=== PATIENT | female | born 1980 | race Caucasian/White ===

== ENCOUNTER 2021-06-09 07:48 | Outpatient (CLI) | payer OTHER, SELFPAY ==
--- NOTE | ~2021-06-09 | CT_ITS ---
EXAMINATION: CT abdomen pelvis w con INDICATION: Lower abdominal pain TECHNIQUE: Computed tomographic images of the abdomen and pelvis were obtained after the administrati on of 100 cc of Omnipaque 350 intravenous contrast. The dose-length product (DLP) was 1090.61 mGy-cm. Automated exposure control and iterative reconstruction technique were employed. COMPARISON: None available FINDINGS: Minimal dependent atelectasis is present in the lung bases. The heart size is normal. The l iver, spleen, pancreas, gallbladder, and adrenal glands are normal. No pathologically enlarged abdomi nal or pelvic lymph nodes are identified. The appendix is normal. There is no free intraperitoneal ga s or evidence of bowel obstruction. An IUD is present in the uterus. The right alexandre of the uterus pen etrates the myometrium and its tip slightly perforates into the right pelvis. There is a tiny fat-con taining umbilical hernia. Mild lumbar spondylosis is noted. IMPRESSION: 1. Abnormal position of the IUD with the right alexandre penetrating the myometrium with its tip in the ri ght pelvis. These findings were discussed with Dr. Warner at 1040 hours on 06/09/2021. Reviewed, dictated and finalized at location A. IMPRESSION: 1. Abnormal position of the IUD with the right alexandre penetrating the myometrium with its tip in the right pelvis. These findings were discussed with Dr. Alana ryder t 1040 hours on 06/09/2021.
== END 2021-06-09 07:49 | disposition home or self-care (01) ==
PROVIDERS: Visit Provider Nurse Practitioner Obstetrics & Gynecology
DX: R10.2 Pelvic and perineal pain (principal); Z97.5 Presence of (intrauterine) contraceptive device
CPT/HCPCS: 74177; Q9967

== ENCOUNTER 2022-03-31 07:59 | Outpatient (CLI) | payer OTHER, SELFPAY ==
--- NOTE | 2022-04-06 20:10 | WPDHOMESLEEP ---
Sleep Study - Home Unattended Date of Study: 03/31/22 Ordering Provider: Lorraine Brand DO Interpreting Provider: Lorraine Brand DO Home Sleep Study Type: Watch PAT Height: 1.65 m Weight: 95.254 kg Body Mass Index: 34.9 Neck Circumference (inches): 15.75 [place]: 7 Reason for Sleep Study morning headaches, daytime hypersomnia, nighttime GERD Sleep History The patient is a 41-year-old female with migraines that had a sleep study ordered for evaluation of sleep apnea. 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 She denies awakening from sleep short of breath. She occasionally awakens at night with heartburn, belching or cough. She occasionally snores but it is rarely loud enough that others complain. She occasionally has trouble sleeping when she has a cold. She denies waking up gasping for air throughout the night. She denies having breathing problems at night observed by herself or others. She denies sweating excessively at night. She denies having heart palpitations or irregular heartbeats during the night. She occasionally falls asleep during the day but never while driving. She denies cataplexy and hypnagogic / hypnopompic hallucinations. She occasionally feels unable to move when waking up or falling asleep. She denies having trouble at school or work due to sleepiness. She denies feeling afraid of going to sleep. She denies having nightmares but will rarely remember her dreams. She occasionally has thoughts racing through her mind. She rarely feels sad or depressed. She occasionally has anxiety. She denies having muscular tension. She denies noticing parts of her body jerk. She denies kicking during the night. She denies having crawling and aching feelings in her legs as well as leg pain during the night. She denies grinding her teeth during sleep awakening with morning jaw pain. She denies being bothered by pain during the day and being awakened by pain during the night. She denies waking up feeling stiff in the morning. She denies waking up with sore achy muscles. She denies waking up with pain in the neck, spine or other joints. She goes to bed at 11:00 p.m. on both weekdays and weekends. It takes her 10-15 minutes to fall asleep. She wakes up 2-3 times throughout the night to use the restroom and turn on the television. She falls asleep within 5 minutes. She wakes up at 7:30 a.m. on weekdays and 9:00 a.m. on the weekends. She typically gets 4-6 hours of sleep per night. She will stay in bed for 30 minutes after waking up in the morning. She currently lives with her boyfriend and 2 children. She will consume caffeinated beverages within 2 hours of bedtime. She does not engage in physical exercise before bedtime. She will watch television before falling asleep. She does not take naps in the afternoon or the evening. She denies tobacco, alcohol and recreational drug use. [facility] Past Medical History Medical History Headache Surgical History Surgical History H/O section Family History Family History Father Diabetes mellitus Family history of polycystic kidney disease Family history of cancer Family history of stroke Mother Hypertension Grandparent Family history of polycystic kidney disease Family history of cancer Social History Social History Smoking status: Never smoker Second hand tobacco smoke exposure: No Alcohol intake: never Substance use: never Medications Home Medications Medication Instructions Recorded Confirmed Type multivitamin 1 tablet PO DAILY 01/21/22 01/21/22 History ondansetron 4 mg disintegrating 4 mg PO Q6H PRN nausea and 03/04/22 03/04/22 Rx tablet vomiting #60 tabs rizatriptan 10 mg disint
[2022-04-06 20:15] VITALS: BMI 34.9
== END 2022-04-01 10:32 | disposition home or self-care (01) ==
LOC: ANHCSM 08:00
PROVIDERS: PCP Family Medicine; Visit Provider Family Medicine
DX: G47.9 Sleep disorder, unspecified (principal)
CPT/HCPCS: 95800

== ENCOUNTER 2024-04-27 14:52 | Outpatient (CLI) | payer OTHER, SELFPAY ==
--- NOTE | ~2024-04-27 | MM_ITS ---
EXAMINATION: MM screening laith BI w [place] HISTORY: Screening TECHNIQUE: Craniocaudal and mediolateral oblique 3-D tomosynthesis images were obtained and synthetic 2-D images were generated. CAD analysis was submitted and interpreted. COMPARISON: No prior mammogram is available for comparison at this institution. BREAST PARENCHYMAL COMPOSITION: Not dense: There are scattered areas of fibroglandular density. FINDINGS: There is a focal asymmetry in the upper outer quadrant of the right breast anteriorly. Ther e is a mass in the upper central aspect of the left breast, middle third. There are no suspicious david cifications. IMPRESSION: 1. Focal right breast asymmetry upper outer quadrant. Small left breast mass upper central left breas t middle third. 2. Additional mammographic views and possible breast ultrasound are recommended. BI-RADS Category 0: Incomplete: Needs additional imaging evaluation. Reviewed, dictated and finalized at location B. IMPRESSION: 1. Focal right breast asymmetry upper outer quadrant. Small left breast mass up per central left breast middle third. 2. Additional mammographic views and possible breast ultrasound are recommended . BI-RADS Category 0: Incomplete: Needs additional imaging evaluation.
== END 2024-04-27 14:53 ==
LOC: MICIMG 14:53
PROVIDERS: PCP Nurse Practitioner; Visit Provider Nurse Practitioner
DX: Z12.31 Encounter for screening mammogram for malignant neoplasm of breast (principal); R92.8 Other abnormal and inconclusive findings on diagnostic imaging of breast
CPT/HCPCS: 77063; 77067

== ENCOUNTER 2024-05-25 09:18 | Outpatient (CLI) | payer OTHER, SELFPAY ==
--- NOTE | ~2024-05-25 | MMUS_ITS ---
EXAMINATION: MM diagnostic laith BI w [place], US breast BI limited HISTORY: Follow-up breast asymmetries TECHNIQUE: Additional 3-D tomosynthesis images of the breasts were performed and synthetic 2-D images were generated. CAD analysis was submitted and interpreted. High resolution limited bilateral breast ultrasound was performed. COMPARISON: 04/27/2024 BREAST PARENCHYMAL COMPOSITION: Not dense: There are scattered areas of fibroglandular density. FINDINGS: MAMMOGRAPHIC FINDINGS: Focal asymmetry anterior and lateral aspect of the right breast on CC view is less dense with spot co mpression views with no discrete mass identified on tomographic images. No corresponding abnormality is seen on MLO or mediolateral views. There is a mass in the upper central aspect of the left breast, middle depth. ULTRASOUND: Limited right breast ultrasound: Normal heterogeneous echotexture without focal solid or cystic mass. Limited left breast ultrasound: At 12:00, 5 cm from the nipple there is an oval slightly irregular sh aped hypoechoic mass measuring 9 x 9 x 5 mm without internal vascularity. No significant posterior fe atures. IMPRESSION: 1. Oval hypoechoic 9 mm left breast mass at 12:00, 5 cm from the nipple corresponding to the mammogra phic finding. 2. Ultrasound-guided left breast biopsy recommended. BI-RADS category 4, suspicious findings. Reviewed, dictated and finalized at location B. IMPRESSION: 1. Oval hypoechoic 9 mm left breast mass at 12:00, 5 cm from the nipple corresp onding to the mammographic finding. 2. Ultrasound-guided left breast biopsy recommended. BI-RADS category 4, suspicious findings.
== END 2024-05-25 09:19 ==
LOC: MICIMG 09:19
PROVIDERS: PCP Nurse Practitioner; Visit Provider Nurse Practitioner
DX: N63.20 Unspecified lump in the left breast, unspecified quadrant (principal); R92.8 Other abnormal and inconclusive findings on diagnostic imaging of breast
CPT/HCPCS: 76642; 77062; 77066; G0279

== ENCOUNTER 2024-07-18 13:26 | Outpatient (CLI) | payer OTHER, SELFPAY ==
--- NOTE | 2024-07-18 13:32 | ECHO_ITS ---
Patient Info Name: Juli Sanchez Age: 43 years : 1980 Gender: Female Ht: 65 in Wt: 215 lbs BSA: 2.16 m2 HR: 89 bpm BP: 145 / 80 mmHg Technical Quality: Fair Exam Date: 07/18/2024 1:43 PM Exam Location: Echo Lab Patient Status: Outpatient Admit Date: 07/18/2024 Staff Ordering Physician: Lorraine Brand DO [employer] Spr[employer] Unit Adjuster: Shayla Harvey RDCS Attending Provider: Lorraine Brand DO Referring Physician: Sunday JAIMES; Exam Type: CA echo doppler color flow Study Info Indications R01.1 - Cardiac murmur, unspecified Complete two-dimensional, color flow and Doppler transthoracic echocardiogram is performed. Summary 1. Complete two-dimensional, color flow and Doppler transthoracic echocardiogram is performed. 2. Left ventricular chamber dimension is normal. 3. Left ventricular systolic function is normal, estimated at 65-70%. 4. The left ventricular diastolic function is normal. 5. E/e' 8 is minimally elevated. 6. There is trace tricuspid valve regurgitation. 7. No pulmonary hypertension, estimated pulmonary arterial systolic pressure is 30 mmHg. Left Ventricle E/e' 8 is minimally elevated. Left ventricular chamber dimension is normal. Left ventricular systolic function is normal, estimated at 65-70%. The left ventricular diastolic function is normal. Right Ventricle Right ventricular systolic function is normal and with normal TAPSE 2.3 cm. Right ventricular chamber dimension is normal. Left Atria Left atrial chamber dimension is normal. Right Atria Right atrial chamber dimension is normal. Aortic Valve The aortic valve is trileaflet. There is no aortic valve stenosis. There is no aortic valve regurgitation. Pulmonic Valve There is no pulmonic regurgitation. Mitral Valve There is no mitral valve stenosis. There is no mitral valve regurgitation. Tricuspid Valve There is trace tricuspid valve regurgitation. No pulmonary hypertension, estimated pulmonary arterial systolic pressure is 30 mmHg. Pericardium/Pleural There is no pericardial effusion. Inferior Vena Cava Normal inferior vena cava with >50% collapse upon inspiration consistent with normal right atrial pressure, 5 mmHg. Aorta The aortic root size at the sinus of Valsalva is normal. Left Ventricular Outflow Tract Name Value Normal LVOT 2D LVOT Diameter 2.0 cm LVOT Doppler LVOT Peak Gradient 5 mmHg LVOT Mean Gradient 3 mmHg LVOT VTI 23 cm LVOT VTI/AV VTI Ratio 0.8 LVOT Stroke Volume 71 ml LVOT CO 6.1 l/min LVOT CI 2.8 l/min/m2 Pulmonic Valve Name Value Normal RVOT Doppler RVOT Peak Gradient 2 mmHg PV Doppler PV Peak Gradient
== END 2024-07-18 13:27 | disposition home or self-care (01) ==
LOC: ANHCARD 13:27
PROVIDERS: PCP Family Medicine; Visit Provider Family Medicine
DX: R01.1 Cardiac murmur, unspecified (principal)
CPT/HCPCS: 93306

== ENCOUNTER 2024-07-19 08:35 | Outpatient (CLI) | payer OTHER, SELFPAY ==
--- NOTE | ~2024-07-19 | US_ITS ---
US breast LT limited 07/19/2024 09:42 Indication: Left breast mass seen on prior examination. Biopsy requested. Procedure: High-resolution Limited ultrasound of the left breast Comparison: 05/25/2024 Findings: Dr. Rg personally present during the examination. Video sweep of the area of interest dem onstrates an oval hypoechoic mass measuring 7 mm with echogenic hilum, most likely benign intramammar y lymph node. Biopsy not performed. Repeat six-month interval ultrasound recommended to assess stabil ity. Impression: 1: Probable benign intramammary lymph node of the left breast at 12:00, 5 cm from the nipple. BI-RADS CATEGORY 3-PROBABLY BENIGN FINDING RECOMMENDATION: 6 month follow-up Limited left breast ultrasound recommended. Reviewed, dictated and finalized at location B. Impression: 1: Probable benign intramammary lymph node of the left breast at 12:00, 5 cm fr om the nipple. BI-RADS CATEGORY 3-PROBABLY BENIGN FINDING RECOMMENDATION: 6 month follow-up Limited left breast ultrasound recommended.
== END 2024-07-19 08:36 | disposition home or self-care (01) ==
PROVIDERS: PCP Family Medicine; Visit Provider Surgery
DX: N63.25 Unspecified lump in the left breast, overlapping quadrants (principal)
CPT/HCPCS: 76642

== ENCOUNTER 2025-03-07 01:15 | Day surgery (SDC) | payer OTHER, SELFPAY ==
--- NOTE | 2025-02-27 15:02 | SUR.PREOP ---
Report to the Outpatient Waiting Room, entrance under the green pavilion located off [facility], at time ___0800____ on date ___03/07/25____. Planned Procedure Time: ____999____.? Time changes happen often and if your time is changed the preop area will call you the afternoon before. - You and your visitor will be asked to self-screen and do not enter if you have any COVID symptoms. Please call surgeon if you need to reschedule. - A mask is optional within the hospital at this time. Patients may have clear liquids (water, carbonated beverages, clear teas, apple juice) until 3 hours prior to surgery with a maximum of 20 ounces. - NO CLEAR LIQUIDS AFTER 0700 - No food from midnight until time of surgery and no smoking, or chewing tobacco (or any form of nicotine). No chewing gum, candy or mints. - Infants may have breast milk until 4 hours before surgery, infant formula 6 hours prior to surgery. - Children will be allowed to drink immediately following surgery.? If applicable, please bring a bottle or sippy cup to assist with drinking. Juice, water, soda, and popsicles are readily available.? For infants on formula, please bring formula the day of surgery.? Pacifiers are allowed. Take only the following medications with a SIP of water on the morning of surgery: N/A DO NOT STOP ANY OF YOUR OTHER PRESCRIPTION MEDICATIONS PRIOR TO SURGERY EXCEPT THE FOLLOWING Hold all vitamins and supplements for 3 days per anesthesiologist. Medications to discontinue per physician N/A Date to take last dose Please no make-up, nail zambian, hairspray, perfume, deodorant, or body powder the day of surgery.? No jewelry (including any body piercings) or valuables the day of surgery, leave them at home.? Please take a shower or bath the night before, or the morning of, surgery with an antibacterial soap.? Wear comfortable, loose fitting clothing.? Children are encouraged to wear pajamas. - Jewelry must be removed prior to entering the operating room.? Rings and piercings that are not removed may be cut off. - The hospital will not accept responsibility for valuables.? - Please leave all valuables, including medications, at home the day of surgery. If you are going home after surgery, a licensed stock car driver must drive you home.? - NO public transportation without another adult if you receive anesthesia. - We recommend that an adult stay with you for 24 hours following discharge. - We also recommend that you do not drive, make important decision, drink alcoholic beverages, or take any drugs that were not prescribed by your health care provider for at least 24 hours after your discharge time. For Pediatric surgeries, we recommend two adults accompany the child home. Follow any additional instructions given to you from your surgeon. Telephone instructions given to CRYSTAL KERN and asked if any additional questions and then verbalized understanding. Patient advised to call surgeon office or pre surgery nurse liaison [phone] if any additional questions.
[2025-02-27 15:20] VITALS: BMI 33.3
--- OUTSIDE RECORDS SUMMARY | 2025-03-07 01:18 | XMS_ITS | Clinical Summary ---
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 Gender Identity Not on file Sexual Orientation Not on file Plan of Treatment Health Maintenance Due Date Last Done Comments DTAP/TDAP/TD VACCINES (1 - Tdap) 1999 HEPATITIS B VACCINES (1 of 3 - 19+ 3-dose series) 1999 HPV/Cotest (21-29) 2001 CERVICAL CANCER SCREENING 2010 HPV/Cotest (30-65) 2010 PAP SMEAR 2010 BREAST CANCER SCREENING 2020 INFLUENZA VACCINE (#1) 2024 HPV VACCINES Aged Out No longer eligi ble based on patient's age to complete this topic Insurance BCBS BLUE ACCESS/TRUE BLUE PPO Care Teams Special Forces Engineer Sergeant Relationship Specialty [place] [address] [place] [id number] PCP - General 08/29/09
--- OUTSIDE RECORDS SUMMARY | 2025-03-07 01:18 | XMS_ITS | Referral Summary ---
Author Organization [facility] [address] Address [facility] [place] [address] Care Team Providers Care Supervisor Bonding Name Role Phone Lorraine Brand DO Primary Care Provider + Allergies Active Allergy Reactions Criticality Noted Date Comments Dkpuugthb-Sohwpjsrl-Wrfqfjsz Swelling Medium 010 Medications progesterone (PROMETRIUM) 200 mg capsule TAKE 1 CAPSULE BY MOUTH EVERY DAY FOR 12 DAYS 01/14/2024 Active cholecalciferol (VITAMIN D-3) 50,000 unit capsule Take 1 capsule (50,000 Units total) by mouth 12/21/2023 Active benzonatate (TESSALON) 100 mg capsuleIndicati ons:Cough Take 1 capsule (100 mg total) by mouth 3 (three) times a day as needed for cough 21 capsule 01/31/2024 Active Active Problems No known active problems Social History Tobacco Use Types Packs/Day Years Used Date Smoking Tobacco: Never Smokeless Tobacco: Never Tobacco Cessation:Counseling Given: Not Answered AUDIT-C Answer Date Recorded Frequency of Alcohol Consumption Not on file 04/11/2022 Q2: How many drinks containi ng alcohol do you have on a typical day when you are drinking? 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 Gender Identity Not on file Sexual Orientation Not on file Last Filed Vital Signs Vital Sign Reading Time Taken Comments Blood Pressure 118/78 01/31/2024 6:33 PM CDT Pulse 105 01/31/2024 6:33 PM CDT Temperature 36.4 C (97.5 F) 01/31/2024 6:33 PM CDT Respiratory Rate 18 01/31/2024 6:33 PM CDT Oxygen Saturation 97% 01/31/2024 6:33 PM CDT Inhaled Oxygen Concentration - - Weight 107.5 kg (237 lb) 01/31/2024 6:33 PM CDT Height 165.1 cm (5' 5) 01/31/2024 6:33 PM CDT Body Mass Index 39.44 01/31/2024 6:33 PM CDT Plan of Treatment Not on file Procedures Procedure Name Priority Date/Time Associated Diagnosis Comments SCREENING MAMMOGRAM 2D BILATERAL Schedule Routine, Read Routine (OP Routine) 05/25/2024 1:56 PM CDT from Last 3 Months or Most Recently Relevant to Health Maintenance Results * Screening Mammogram 2D Bilateral (05/25/2024 1:56 PM CDT) Anatomical Region Laterality Modality Breast Bilateral Mammography us Historical Provider MD [facility] MAMMO PROCEDURES Nova l Result from Last 3 Months or Most Recently Relevant to Health Maintenance Insurance [employer] Care Teams Supervisor Bonding Relationship Specialty Start Date End Date Lorraine Brand DO [address] [place] [address] [place] [address] PCP - General Family Medicine 01/31/24
--- OUTSIDE RECORDS SUMMARY | 2025-03-07 01:19 | XMS_ITS | Clinical Summary ---
Author Organization [facility] Address [address] [place] [address] Care Team Providers Care Senior Sales Administrator Name Role Phone BrandShayneth Nicol ROCHE Primary Care Provider [phone] Source Comments [facility],non-owned Affiliates and Associated Physician Practices is amultiple site organization consisting of ambulatory clinics and hospital sitesin [place], [place], [place] and [place]. This disclosure is being madepursuant to the Care Everywhere program and may not contain all information available regarding this patient. Last updated 18.[facility] Allergies Active Allergy Reactions Criticality Noted Date Comments Extendryl Swelling 03/08/2010 Medications * Be aware that medications may not be up to date on this document. Always verify current medications with the patient. Cholecalciferol 1.25 MG (99504 UT) Take 1 capsule by mouth once a week 12/21/2023 Active cabergoline (Dostinex) 0.5 MG tablet TAKE 1/2 TABLET BY MOUTH TWICE WEEKLY 24 tablet 1 06/06/2024 Active Active Problems Problem Noted Date Diagnosed Date Tachycardia 03/10/2010 Immunizations Immunization Administration Dates Next Due TDAP (7yrs+) 03/12/2010 Family History Medical History Relation Name Comments Other Father DVT Cancer Maternal Grandfather Cancer Maternal Grandmother Diabetes Maternal Grandmother Cancer Paternal Grandfather Cancer Paternal Grandmother Relation Name Status Comments Father Maternal Grandfather Maternal Grandmother Paternal Grandfather Paternal Grandmother Social History Tobacco Use Types Packs/Day Years Used Date Smoking Tobacco: Never Smokeless Tobacco: Never Tobacco Cessation:Counseling Given: Yes Alcohol Use Standard Drinks/Week Comments No 0 (1 standard drink = 0.6 oz pur e alcohol) Comments No Sex and Gender Information Value Date Recorded Sex Assigned at Not on file Legal Sex Female 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 Gender Identity Not on file Sexual Orientation Not on file Last Filed Vital Signs Vital Sign Reading Time Taken Comments Blood Pressure 157/87 02/08/2024 9:28 AM CDT Pulse 93 02/08/2024 9:28 AM CDT Temperature 37.1 C (98.7 F) 12/07/2019 3:04 PM CDT Respiratory Rate 16 12/07/2019 3:04 PM CDT Oxygen Saturation 96% 02/08/2024 9:28 AM CDT Inhaled Oxygen Concentration - - Weight 88.5 kg (195 lb) 12/07/2019 3:04 PM CDT Height 165.1 cm (5' 5) 12/07/2019 3:04 PM CDT Body Mass Index 32.45 12/07/2019 3:04 PM CDT Plan of Treatment Health Maintenance Due Date Last Done Comments MAMMOGRAM 1980 HIV SCREENING 1995 HEPATITIS C SCREENING 09/29/1998 HEPATITIS B VACCINE (1 of 3 - 19+ 3-dose series) 1999 DTAP/TDAP/TD VACCINES (2 - T d or Tdap) 03/12/2020 03/12/2010 COVID-19 VACCINE (2023-2 5 season) 2024 DEPRESSION SCREENING 09/27/2024 PAP SMEAR 12/14/2026 12/15/2023, 12/15/2023 LIPID TESTING 12/14/2028 12/15/2023 ZOSTER VACCINE (1 of 2) 2030 INFLUENZA VACCINE Completed 07/16/2024 HIB VACCINE Aged Out No longer eligi ble based on patient's age to complete this topic HPV VACCINE Aged Out No longer eligi ble based on patient's age to complete this topic MENINGOCOCCAL (Group B) VACCINE SHARED DECISION-MAKING Aged Out No longer eligible based on patient's age to complete this topic MENINGOCOCCAL GROUPS A/C/Y/W VACCINE Aged Out No longer eligible b ased on patient's age to complete this topic PNEUMOCOCCAL VACCINE Aged Out No long er eligible based on patient's age to complete this topic Insurance * Guarantor: Juli Sanchez Account Type Relation to Patient Date of Phone Billing Address Personal/Family Self [address] [place] [place] [address] [facility] Advance Directives * Full Code (Latest Code Status on File) Date Activated Date Inactivated Comments 03/08/2010 8:58 PM 03/14/2010 3:16 AM Care Teams Senior Sales Administrator Relationship Specialty Start Date End Date Lorraine Brand DO [address] [place] [address] PCP - General Family Medicine 12/22/23
--- OUTSIDE RECORDS SUMMARY | 2025-03-07 01:19 | XMS_ITS | Data Portability ---
Author Organization [facility] [place] Address [address] [place] [place] [place] [address] Care Team Providers Care Recovery Agent Name Role Phone DEAN CHARISSE Primary Care Provider Assessment Encounter Date Assessment Date Assessment LastModified by Organization Details LastModified Time 12/20/2024 12/20/2024 Annual gynecological exam performed. Patient will come back in a year unless there are new symptoms. Not available 12/20/2024 09:51:15 Plan of Treatment Reminders Order Date Submit Date Provider Last Modified By Organization Details Last Modified Time Details Appointments SURG Hysterosc opy 2024 10:30A Kenan WARNER MD Not available Not available Not available SURG POST OP 2024 03:30P Kenan WARNER MD Not available Not available Not available Lab test, urine 2024 025 gregorioprincetonlizandro [place], [address], [address], [place], [address], 01/09/2025 13:44:38 test, urine 2023 024 christina [place], [address], [place], [address], 01/12/2024 12:41:37 Referral None recorded. Procedures None recorded. Surgeries dilation and curettage with hysterosc opy (SURG) 2024 025 [facility], [address], [place], [address], 02/01/2025 11:36:38 Imaging US, pelvis [address], [address], [place], [address], 12/27/2024 22:04:56 US, transvagi nal [address], [address], [place], [address], 12/27/2024 22:04:56 MAMMO, screening , digital, bilateral [address] [facility], [address], [place], [address], 01/21/2025 11:15:30 US, pelvis, complete [address]24 [address], [address], [place], [address], 12/27/2024 09:20:57 Medication Orders None recorded. Patient TargetsNo targets recorded. Patient InstructionsNo instructions recorded. Reason for Referral None Reported. Results Created Date Observation Date Name Description Value Unit Range Abnormal Flag Note LastModifiedBy Organization Detail LastModifiedTime 12/15/19 24 12/15/2023 IMAGE GUIDE D PAP AND HPV REGAR DLESS image guided Pap, HPV regardless of Pap result SEE RESULT S BELOW CASE REPOR T: Cytol ogy Gynec ologi maria de jesus Repor t Case: [id number] Autho nya g Provi yobany: Caro iGl NP Colle cted: 12/14 0943 Order ing Locat ion: [place] Patho logy Recei nat: 12/15 0145 First Scree n: Ma, Eliot, CT Rescr een: Kezia de, Brii lao, CT Speci men: Scree viraj Pap - Image d, Cervi x STATE MENT OF ADEQU ACY: Satis facto ry for evalu ation Trans forma tion zone compo nent absen t The absen ce of an endoc ervic al compo nent was confi rmed by an addit aldo cyr. FINAL DIAGN OSIS: Negat danica for Intra epith elial Lesio n or Jose G carrasquillo (NIL) . Elect ann cabrera vickey d by Brii Salgado ret, CT on 2023 at 7:57 AM ----- ----- ----- ----- ----- ----- ----- ----- ----- ----- ----- ----- ----- ----- ----- ----- ----- ---- HPV RESUL TS: HPV mRNA E6/E7 : No HPV mRNA Detec kwesi NOTE: This high risk HPV mRNA assay detec ts fourt een high- risk HPV types (16, 18, 31, 33, 35, 39, 45, 51, 52, 56, 58, 59, 66, 68) witho ut diffe renti ation . COMME NT: This speci men was revie wed by a Cytot echno logis t and/o r Patho logis t (as indic ated in this repor t) after evalu ation using the Thinp rep Imagi ng Syste m. CLINI MARIA DE JESUS INFOR MATIO N: Menst rual Statu s: LMP (if appli cable ): Clini maria de jesus Histo ry/Pr eviou s Pap: Type of Neopl geetha (if appli cable ): Signi fican t Clini maria de jesus Findi ngs: Other Histo ry: Hormo radha (if appli cable ): PAP EDUCA SOL L NOTE: The Pap Test is a scree viraj test with an inher ent false negat danica rate. Liqui d-bas ed sampl ing may decre ase, but will not elimi kris, false negat danica resul ts. A negat danica resul t does not precl ude the prese nce and/o r devel opmen t of disea se, since the prese nce of abnor mal cells in the sampl e depen ds on the locat ion of the lesio n and sampl ing techn ique. Cass nued regul ar scree viraj is the best metho d of cance r preve ntion . If repor kwesi cytol ogic findi ng do not corre late with physi maria de jesus and/o r histo rical findi ngs, furth er inves tigat ion is recom srinivasan d, as clini phuong kirby nted. Not Available [facility] (Lab) [address], [place], [address], 12/20/2023 08:59:53 12/15/19 24 12/15/2023 CBC W/DIF F WBC 6.0 10'3/ uL 3.5-10 .5 Not Available [facility] (Lab) [address], [place], [address], 12/20/2023 23:23:43 12/15/19 24 12/15/2023 CBC W/DIF F RBC 5.01 10'6/ uL (based on docume nted legal sex) 3.80-5 .20 Not Available [facility] (Lab) [address], [place], [address], 12/20/2023 23:23:43 12/15/19 24 12/15/2023 CBC W/DIF F HGB 13.1 g/dL (based on docume nted legal sex) 11.6-1 5.4 Not Available [facility] (Lab) [address], [place], [address], 12/20/2023 23:23:43 12/15/19 24 12/15/2023 CBC W/DIF F HCT 40.7 % (based on docume nted legal sex) 34.0-4 5.0 Not Available [facility] (Lab) [address], [place], [address], 12/20/2023 23:23:43 12/15/19 24 12/15/2023 CBC W/DIF F MCV 81.2 fL 80.0-9 9.0 Not Available [facility] (Lab) [address] [facility] [address], [place], [address], 12/20/2023 23:23:43 12/15/19 24 12/15/2023 CBC W/DIF F MCH 26.1 pg 27.0-3 4.0 low Not Available [facility] (Lab) [address] [facility], [place], [address], 12/20/2023 23:23:43 12/15/19 24 12/15/2023 CBC W/DIF F MCHC 32.2 g/dL 32.0-3 5.5 Not Available [facility] (Lab) [address], [place], [address], 12/20/2023 23:23:43 12/15/19 24 12/15/2023 CBC W/DIF F RDW 14.8 % 11.0-1 5.0 Not Available [facility] (Lab) [address], [place], [address], 12/20/2023 23:23:43 12/15/19 24 12/15/2023 CBC W/DIF F plt 258 10'3/ uL 150-40 0 Not Available [facility] (Lab) [address], [place], [address], 12/20/2023 23:23:43 12/15/19 24 12/15/2023 CBC W/DIF F MPV 11.2 fL 8.8-12 .1 Not Available [facility] (Lab) [address], [place], [address], 12/20/2023 23:23:43 12/15/19 24 12/15/2023 CBC W/DIF F NRBC's 0.0 % 0.0 Not Available [facility] (Lab) [address], [place], [address], 12/20/2023 23:23:43 12/15/19 24 12/15/2023 CBC W/DIF F absolute NRBCs 0.0 10'3/ uL 0.0 Not Available [facility] (Lab) [address], [place], [address], 12/20/2023 23:23:43 12/15/19 24 12/15/2023 CBC W/DIF F neutrophils 60.3 % 34.0-7 3.0 Not Available [facility] (Lab) [address], [place], [address], 12/20/2023 23:23:43 12/15/19 24 12/15/2023 CBC W/DIF F lymphocytes 30.5 % 15.0-5 0.0 Not Available [facility] (Lab) [address], [place], [address], 12/20/2023 23:23:43 12/15/19 24 12/15/2023 CBC W/DIF F monocytes 5.6 % 1.0-15 .0 Not Available [facility] (Lab) [address], [place], [address], 12/20/2023 23:23:43 12/15/19 24 12/15/2023 CBC W/DIF F eosinophils 2.8 % 0.0-8. 0 Not Available [facility] (Lab) [address], [place], [address], 12/20/2023 23:23:43 12/15/19 24 12/15/2023 CBC W/DIF F basophils 0.3 % 0.0-2. 0 Not Available [facility] (Lab) [address] [place], [address], 12/20/2023 23:23:43 12/15/19 24 12/15/2023 CBC W/DIF F immature granulocytes 0.5 % no define d refere nce range Not Available [facility] (Lab) [address] [place], [address], 12/20/2023 23:23:43 12/15/19 24 12/15/2023 CBC W/DIF F absolute neutrophils 3.6 10'3/ uL 1.5-8. 0 Not Available [facility] (Lab) [address], [place], [address], 12/20/2023 23:23:43 12/15/19 24 12/15/2023 CBC W/DIF F absolute lymphocytes 1.8 10'3/ uL 1.0-4. 0 Not Available [facility] (Lab) [address], [place], [address], 12/20/2023 23:23:43 12/15/19 24 12/15/2023 CBC W/DIF F absolute monocytes 0.3 10'3/ uL 0.2-1. 0 Not Available [facility] (Lab) [address], [place], [address], 12/20/2023 23:23:43 12/15/19 24 12/15/2023 CBC W/DIF F absolute eosinophils 0.2 10'3/ uL 0.0-0. 6 Not Available [facility] (Lab) [address], [place], [address], 12/20/2023 23:23:43 12/15/19 24 12/15/2023 CBC W/DIF F absolute basophils 0.0 10'3/ uL 0.0-0. 3 Not Available [facility] (Lab) [address], [place], [address], 12/20/2023 23:23:43 12/15/19 24 12/15/2023 CBC W/DIF F absolute immature granulocytes 0.0 10'3/ uL 0.00-0 .10 2023 1:58 AM: P indic ates parti al resul ts on a panel have been relea sed. Addit ional resul ts will follo w. 2023 1:58 AM: This resul t has been final verif ied. No addit ional or hooker ed resul ts are expec kwesi. Not Available [facility] (Lab) [address], [place], [address], 12/20/2023 23:23:43 12/15/19 24 12/15/2023 LIPID PANEL ,AMA (LDL- CALC) total cholesterol 193 mg/dL 0-199 Not Available [facility] (Lab) [address], [place], [address], 12/20/2023 23:23:43 12/15/19 24 12/15/2023 LIPID PANEL ,AMA (LDL- CALC) triglyceride s 112 mg/dL 0.00-1 50.00 NCEP Refer ence Value s for Trigl yceri alvarez: Dayna l: <150 mg/dL Borde rline High: 150 - 199 mg/dL High: 200 - 499 mg/dL Very High: >/= 500 mg/dL Not Available [facility] (Lab) [address] [place], [address], 12/20/2023 23:23:43 12/15/19 24 12/15/2023 LIPID PANEL ,AMA (LDL- CALC) HDL cholesterol 43 mg/dL >40 Not Available [facility] (Lab) [address] [place], [address], 12/20/2023 23:23:43 12/15/19 24 12/15/2023 LIPID PANEL ,AMA (LDL- CALC) LDL cholesterol 128 mg/dL 0-99 high Cutof f value s recom srinivasan d by the Gonzales nal Sally stero l Educa tion Progr am: JASPAL ABLE: Sally stero l <200 mg/dL LDL <100 mg/dL BORDE RLINE : Sally stero l 200-2 39 mg/dL LDL 101-1 59 mg/dL HIGHE R RISK: Sally stero l >240 mg/dL LDL >160 mg/dL , HDL <40 mg/dL Not Available [facility] (Lab) [address] [place], [address], 12/20/2023 23:23:43 12/15/19 24 12/15/2023 LIPID PANEL ,AMA (LDL- CALC) non-HDL cholesterol 150 mg/dL no refere nce range A reaso nable goal for non-H DL sally stero l is one that is 30 mg/dL highe r than the LDL sally stero l goal. Not Available [facility] (Lab) [address], [place], [address], 12/20/2023 23:23:43 12/15/19 24 12/15/2023 LIPID PANEL ,AMA (LDL- CALC) chol/HDL ratio 4.5 . 0.0-5. 0 On January 19, 2023, [facility] labor atori jacobo hooker ed the equat ion for calcu latin g estim ated low-d ensit y lipop rotei n-cho leste rol (LDL- C) from the Fried tawanda equat ion to the Tammie n/Hop kins equat ion. This new equat ion is only valid for lipid panel s with trigl yceri alvarez < 400 mg/dL . Studi es have demon strat ed that this new equat ion will impro ve the accur acy of LDL-C , espec ially in scena burris when LDL-C grabiel ntrat ions are relat ively low (< 100 mg/dL ), trigl yceri alvarez are eleva kwesi, or patie nt is non-f astin g. Refer ences : - Tammie walsh, Kojo Ramirez, Fan Penaloza , [facility] david BMary Ellen fountain, Jt Schrader, Hamzah [facility] , and Natalio Bates . 2013. Comp ariso n of a Novel Metho d vs the Fried tawanda Equat ion for Estim ating Low-D ensit y Lipop rotei n Sally stero l Level s from the Stand jm Lipid Profi le. VIJAYA: The Journ al of the Ameri can Medic al Assoc iatio n 310 (19): 2060- . - Glendy clemons V, Justine J, Humble clemons A, Maritza Grayson, Karen manriquez R, Pippa clemons E, Kyara farooq RS, Paulo SR, Tammie walsh SS. Fast ing Versu s Nonfa sting and Low-D ensit y Lipop rotei n Sally stero l Accur acy. Circu latio n. 2017Sep 28;137 (1):1 0-19. Not Available [facility] (Lab) [address], [place], [address], 12/20/2023 23:23:43 12/15/19 24 12/15/2023 CMP(C OMPRE HENSI VE METAB OLIC PANEL ) sodium 142 mmol/ L 133-14 6 Not Available [facility] (Lab) [address], [place], [address], 12/20/2023 23:23:44 12/15/19 24 12/15/2023 CMP(C OMPRE HENSI VE METAB OLIC PANEL ) potassium 4.5 mmol/ L 3.5-5. 1 Not Available [facility] (Lab) [address], [place], [address], 12/20/2023 23:23:44 12/15/19 24 12/15/2023 CMP(C OMPRE HENSI VE METAB OLIC PANEL ) chloride 106 mmol/ L 98-107 Not Available [facility] (Lab) [address], [place], [address], 12/20/2023 23:23:44 12/15/19 24 12/15/2023 CMP(C OMPRE HENSI VE METAB OLIC PANEL ) carbon dioxide 28 mmol/ L 21-31 Not Available [facility] (Lab) [address], [place], [address], 12/20/2023 23:23:44 12/15/19 24 12/15/2023 CMP(C OMPRE HENSI VE METAB OLIC PANEL ) anion gap 8 mmol/ L 4-13 Not Available [facility] (Lab) [address] [place], [address], 12/20/2023 23:23:44 12/15/19 24 12/15/2023 CMP(C OMPRE HENSI VE METAB OLIC PANEL ) blood urea nitrogen 15 mg/dL 7-25 Not Available [facility] (Lab) [address], [place], [address], 12/20/2023 23:23:44 12/15/19 24 12/15/2023 CMP(C OMPRE HENSI VE METAB OLIC PANEL ) creatinine 0.82 mg/dL 0.60-1 .30 Not Available [facility] (Lab) [address], [place], [address], 12/20/2023 23:23:44 12/15/19 24 12/15/2023 CMP(C OMPRE HENSI VE METAB OLIC PANEL ) egfrcr (CKD-epi 2020) >90 mL/mi n/1.7 3_m2 >=60 Not Available [facility] (Lab) [address], [place], [address], 12/20/2023 23:23:44 12/15/19 24 12/15/2023 CMP(C OMPRE HENSI VE METAB OLIC PANEL ) calcium 9.6 mg/dL 8.3-10 .5 Not Available [facility] (Lab) [address], [place], [address], 12/20/2023 23:23:44 12/15/19 24 12/15/2023 CMP(C OMPRE HENSI VE METAB OLIC PANEL ) glucose 100 mg/dL 70-100 Not Available [facility] (Lab) [address], [place], [address], 12/20/2023 23:23:44 12/15/19 24 12/15/2023 CMP(C OMPRE HENSI VE METAB OLIC PANEL ) protein, total 7.2 g/dL 6.4-8. 3 Not Available [facility] (Lab) [address], [place], [address], 12/20/2023 23:23:44 12/15/19 24 12/15/2023 CMP(C OMPRE HENSI VE METAB OLIC PANEL ) albumin 4.3 g/dL 3.5-5. 0 Not Available [facility] (Lab) [address], [place], [address], 12/20/2023 23:23:44 12/15/19 24 12/15/2023 CMP(C OMPRE HENSI VE METAB OLIC PANEL ) ALT 28 units /L 9-43 Not Available [facility] (Lab) [address], [place], [address], 12/20/2023 23:23:44 12/15/19 24 12/15/2023 CMP(C OMPRE HENSI VE METAB OLIC PANEL ) alkaline phosphatase 71 units /L 34-104 Not Available [facility] (Lab) [address], [place], [address], 12/20/2023 23:23:44 12/15/19 24 12/15/2023 CMP(C OMPRE HENSI VE METAB OLIC PANEL ) AST 20 units /L 13-39 Not Available [facility] (Lab) [address], [place], [address], 12/20/2023 23:23:44 12/15/19 24 12/15/2023 CMP(C OMPRE HENSI VE METAB OLIC PANEL ) bilirubin, total 0.9 mg/dL 0.2-1. 2 Not Available [facility] (Lab) [address] [place], [address], 12/20/2023 23:23:44 12/15/19 24 12/15/2023 DHEA SULFA TE DHEA-sulfate 34 ug/dL Femal e Range s Age(y ) Range (ug/d L) 10-15 34-28 0 15-20 65-36 8 20-25 148-4 07 25-35 99-34 0 35-45 61-33 7 45-55 35-25 6 55-65 19-20 5 65-75 9-246 > 75 12-15 4 Not Available [facility] (Lab) [address], [place], [address], 12/20/2023 23:23:44 12/15/19 24 12/15/2023 TSH, REFLE X FREE T4 TSH 1.19 uIU/m L 0.30-5 .33 Not Available [facility] (Lab) [address], [place], [address], 12/20/2023 23:23:45 12/15/19 24 12/15/2023 HUMAN SEX HORMO NE JESUS NG GLOBU DORA sex hormone binding globulin 14.5 nmole s/L 18.2-1 35.5 low Not Available [facility] (Lab) [address], [place], [address], 12/20/2023 23:23:45 12/15/19 24 12/15/2023 VITAM IN D, 25-OH (TOTA L D2/D3 ) vitamin D, 25-hydroxy, total 15.4 NG/mL 30.0-1 00.0 low Sugge stive of Defic iency : <20 ng/mL Sugge stive of Insuf ficie ncy: 20-29 ng/mL Sugge stive of Suffi cienc y: 30-10 0 ng/mL Sugge stive of Toxic ity: >150 ng/mL Not Available [facility] (Lab) [address], [place], [address], 12/20/2023 23:23:45 12/15/19 24 12/15/2023 ESTRA DIOL estradiol 8.1 pg/mL This assay was perfo rmed using [employer] ratio n reage nts and test kits. Value s obtai jamie with other assay metho ds or kits canno t be used inter hooker eably . Femal e Estra diol Range s: Folli cular phasE 12.4- 233 pg/mL Ovula tion phasE 41.0- 398 pg/mL Lutea l phasE 22.3- 341 pg/mL Postm enopa usal <5-13 8 pg/mL Healt hy Pregn ant Women 1st Trime ster 154-3 243 pg/mL 2nd Trime ster 1561- 76695 pg/mL 3rd Trime ster 8525- >3000 0 pg/mL Not Available [facility] (Lab) [address] [place], [address], 12/20/2023 23:23:46 12/15/19 24 12/15/2023 PROGE STERO NE progesterone 0.18 NG/mL This assay was perfo rmed using [employer] n reage nts and test kits. Value s obtai jamie with other assay metho ds or kits canno t be used inter hooekr eably . Femal e Proge stero ne Range s: Folli cular phasE 0.06- 0.89 ng/mL Ovula tion phasE 0.12- 12.00 ng/mL Lutea l phasE 1.83- 23.90 ng/mL Postm enopa usal <0.05 -0.13 ng/mL Healt hy Pregn ant Women 1st Trime ster 11.0- 44.30 2nd Trime ster 25.40 -83.3 0 3rd Trime ster 58.70 -214. 00 Not Available [facility] (Lab) [address] [place], [address], 12/20/2023 23:23:46 12/15/19 24 12/15/2023 PROLA CTIN prolactin, total 156.00 NG/mL 4.79-2 3.30 high This assay was perfo rmed using [employer] ratio n reage nts and test kits. Value s obtai jamie with other assay metho ds or kits canno t be used inter hooker eably . Not Available [facility] (Lab) [address] [place], [address], 12/20/2023 23:23:46 12/15/19 24 12/15/2023 LH (LUTE NIZIN G HORMO NE) LH 6.7 mIU/m L This assay was perfo rmed using [employer] reage nts and test kits. Value s obtai jamie with other assay metho ds or kits canno t be used inter hooker eably . Femal es Mid-F ollic ular: 2.4-1 2.6 mIU/m L Mid-C ycle: 14.0- 95.6 mIU/m L Mid-L uteal : 1.0-1 1.4 mIU/m L Postm enopa use: 7.7-5 8.5 mIU/m L Not Available [facility] (Lab) [address], [place], [address], 12/20/2023 23:23:47 12/15/19 24 12/15/2023 FSH FSH 6.9 mIU/m L This assay was perfo rmed using [employer] reage nts and test kits. Value s obtai jamie with other assay metho ds or kits canno t be used inter [facility] . Femal es Folli cular : 3.5-1 2.5 mIU/m L Ovula tion: 4.7-2 1.5 mIU/m L Lutea l: 1.7-7 .7 mIU/m L Postm enopa use: 25.8- 134.8 mIU/m L Not Available [facility] (Lab) [address], [place], [address], 12/20/2023 23:23:47 12/15/19 24 12/15/2023 HEMOG LOBIN A1C hemoglobin A1C 5.7 % 0-5.6 high The Ameri can Diabe ben Assoc iatio n recom mends that a prima ry goal of thera py shoul d be a HBA1C of < 7% and that physi cians shoul d reeva luate the treat ment regim en in patie nts with HBA1C value s consi stent ly > 8%. <5.7% Dayna l 5.7 - 6.4% Incre ased risk for diabe ben >=6.5 % Diagn ostic of diabe ben <7.0% Goal of thera py >8.0% Actio n sugge sted Not Available [facility] (Lab) [address], [place], [address], 12/20/2023 23:23:48 12/15/19 24 12/15/2023 TESTO STERO NE, FREE( DIALY SIS) AND TOTAL (LC/M S/MS) testosterone , total 7 NG/dL 2-45 For addit ional mariano duke e refer to http: //jose carlos walsh.que stdia gnost ics.c om/fa q/ Total Testo stero neLCM SMSFA Q165 (This link is being provi ded for infoeli serna nal/ educa sol l purpo ses only. ) This test was devel oped and its janelle tical perfo rmanc e isela cteri stics have been deter mined by [employer] [place]. It has not been clear ed or appro nat by the U.S. Food and Drug Admin istra tion. This assay has been valid ated pursu ant to the CLDE regul ation s and is used for clini maria de jesus purpo ses. Not Available [facility] (Lab) [address], [place], [address], 12/20/2023 23:23:48 12/15/19 24 12/15/2023 TESTO STERO NE, FREE( DIALY SIS) AND TOTAL (LC/M S/MS) testosterone , free 1.5 pg/mL 0.1-6. 4 This test was devel oped and its janelle tical perfo rmanc e isela cteri stics have been deter mined by [employer] [facility] [place]. It has not been clear ed or appro nat by the U.S. Food and Drug Admin istra tion. This assay has been valid ated pursu ant to the CLIA regul ation s and is used for clini maria de jesus purpo ses. Perfo rming Organ [facility]ati on [facility] n: Site ID: [id number] Name: [facility] stevan Addre ss: [id number] [place], [place] Direc tor: Samanta Wolfe MD PhD Not Available [facility] (Lab) [address], [place], [address], 12/20/2023 23:23:48 12/15/19 24 12/15/2023 17-OH PROGE STERO NE 17-hydroxypr ogesterone, lc/MS/MS 13 NG/dL Adult Femal e Refer ence Range s for 17-Hy droxy proge stero ne: Pre-M enopa usal Mid Folli cular : 23-10 2 ng/dL Pre-M enopa usal Surge : 67-34 9 ng/dL Pre-M enopa usal Mid Lutea l: 139-4 31 ng/dL Postm enopa usal Phase : < or = 45 ng/dL Pregn silvano: First Trime ster: 78-45 7 ng/dL Secon d Trime ster: 90-35 7 ng/dL Third Trime ster: 144-5 78 ng/dL This test was devel oped and its janelle tical perfo rmanc e isela cteri stics have been deter mined by [employer]. It has not been clear ed or appro nat by FDA. This assay has been valid ated pursu ant to the CLIA regul ation s and is used for clini maria de jesus purpo ses. Perfo rming Organ izati on Infor matgerson n: Site ID: [id number] Name: [facility] [employer] [facility]/Donald conrad C-S amari [place] , Addre ss: [id number] [facility] [place] [phone] Direc tor: Aixa silva MD,Ph D,AMI Not Available [facility] (Lab) [address], [place], [address], 12/20/2023 23:23:48 01/05/20 24 01/05/2024 CT/GC AND TRICH OMONA S VAGIN MOSES (RRNA ), URINE chlamydia trachomatis, PCR Negati ve negati ve Not Available [facility] (Lab) [address] [place], [address], 01/06/2024 12:38:50 01/05/20 24 01/05/2024 CT/GC AND TRICH OMONA S VAGIN MOSES (RRNA ), URINE neisseria gonorrhoeae, PCR Negati ve negati ve Not Available [facility] (Lab) [address], [place], [address], 01/06/2024 12:38:50 01/05/20 24 01/05/2024 CT/GC AND TRICH OMONA S VAGIN MOSES (RRNA ), URINE trichomonas vaginalis ribosomal RNA (rrna) Negati ve negati ve Not Available [facility] (Lab) [address], [place], [address], 01/06/2024 12:38:50 01/05/20 24 01/05/2024 pregn silvano test, urine HCG negati ve Not Available [facility] [address], [place], [address], 01/05/2024 14:48:37 01/05/20 24 01/05/2024 pregn silvano test, urine HCG negati ve Not Available [facility] [address], [place], [address], 01/05/2024 14:49:20 01/10/20 24 01/10/2024 BHCG, QUANT ITATI VE B-HCG <0.2 mIU/m L This assay was perfo rmed using [employer] ratio n reage nts and test kits. Value s obtai jamie with other assay metho ds or kits canno t be used inter hooker eably . Refer ence Range s: Non-p regna nt, preme nopau lilian women : 0.0-5 .3 mIU/m L Postm enopa usal women : 0.0-7 .0 mIU/m L Dayna l Pregn silvano: Gesta sol l Age bHCG Conc. - mIU/m L 3 Weeks 5.8 - 71.7 4 Weeks 9.5 - 750 5 Weeks 217-7 138 6 Weeks 158 - 31,79 5 7 Weeks 3,697 - 162,5 63 8 Weeks 32,06 5 - 149,5 71 9 Weeks 63,80 3 - 151,4 10 10 Weeks 46,50 9 - 186,9 77 12 Weeks 27,83 2 - 210,6 12 14 Weeks 13,95 0 - 62,53 0 15 Weeks 12,03 9 - 70,97 1 16 Weeks 9,040 - 56,45 1 17 Weeks 8,175 - 55,86 8 18 Weeks 8,099 - 58,17 6 Not Available [facility] (Lab) [address], [place], [address], 01/11/2024 12:32:33 01/12/20 24 01/12/2024 SURGI MARIA DE JESUS PATHO LOGY surgical pathology SEE RESULT S BELOW CASE REPOR T: Surgi maria de jesus Patho logy Repor t Case: [id number] Autho nya singh Provi yobany: Caro Gil, AVA Colle cted: 01/11 1401 Order ing Locat ion: [place] [facility] Recei nat: 01/12 0309 Patho logis t: Vic Ortega MD Speci men: Endom etriu m, EMB FINAL DIAGN OSIS: Endom etriu m, biops y: -Deta ched super ficia l fragm ents of weakl y proli ferat danica endom etriu m with cilia kwesi metap lasia . -Nega tive for hyper plasi a and malig neida . Elect ann piper by Vic Ortega MD on 2023 at 2:44 PM ----- ----- ----- ----- ----- ----- ----- ----- ----- ----- ----- ----- ----- ----- ----- ----- ----- ---- CLINI [facility] INFOR MATIO N: EMB ABNOR MAL UTERI NE BLEED ING MICRO SCOPI C DESCR IPTIO N: A micro scopi c exami natio n was perfo rmed. GROSS DESCR IPTIO N: A. Endom etriu m. The speci men is label ed with the patie nt's name, hang bowling cs and EMB. Recei nat in forma dora is a 1.1 x 0.3 x 0.1 cm aggre gate of dark red tissu e and mucus . The entir e speci men is submi tted in one casse tte. Gross ed by Tyrell Reece on Not Available [facility] (Lab) [address], [place], [address], 01/13/2024 15:47:19 01/12/20 24 01/12/2024 pregn silvano test, urine HCG negati ve Not Available [facility] [address], [place], [address], 01/12/2024 12:28:52 12/21/19 25 12/20/2024 IMAGE GUIDE D PAP AND HPV REGAR DLESS image guided Pap, HPV regardless of Pap result SEE RESULT S BELOW CASE REPOR T: Cytol ogy Gynec ologi maria de jesus Repor t Case: [id number] Autho rizin g Provi yobany: Caro Gil, AVA Colle cted: 12/20 1347 Order ing Locat ion: [place] Patho logy Recei nat: 12/21 0158 First Scree n: Sylvia amaya, [place] ed, CT Rescr een: Edwina Bates ay, CT Speci men: Scree viraj Pap - Image d, Cervi x STATE MENT OF ADEQU ACY: Satis facto ry for evalu ation Trans forma tion zone compo nent absen t The absen ce of an endoc ervic al compo nent was confi rmed by an addit ional scree ner. ----- ----- ----- ----- ----- ----- ----- ----- ----- ----- ----- ----- ----- ----- ----- ----- ----- ---- FINAL DIAGN OSIS: Negat danica for Intra epith elial Lesio n or Jose G cararsquillo (NIL) . Elect jenniferruddy cabrera vickey d by Edwina Bates, CT on 025 at 0911 CDT ----- ----- ----- ----- ----- ----- ----- ----- ----- ----- ----- ----- ----- ----- ----- ----- ----- ---- HPV RESUL TS: HPV mRNA E6/E7 : No HPV mRNA Detec kwesi NOTE: This high risk HPV mRNA assay detec ts fourt een high- risk HPV types (16, 18, 31, 33, 35, 39, 45, 51, 52, 56, 58, 59, 66, 68) witho ut diffe renti ation . COMME NT: This speci men was revie wed by a Cytot echno logis t and/o r Patho logis t (as indic ated in this repor t) after evalu ation using the Thinp rep Imagi ng Syste m. CLINI [facility] DE [facility] INFOR MATIO N: Menst rual Statu s: LMP (if appli cable ): Clini [facility]ia de jesus Histo ry/Pr eviou s Pap: Type of Neopl geetha (if appli cable ): Signi fican t Clini [facility] de j[facility]us Findi ngs: Other Histo ry: Hormo radha (if appli cable ): PAP EDUCA SOL L NOTE: The Pap Test is a scree viraj test with an inher ent false negat danica rate. Liqui d-bas ed sampl ing may decre ase, but will not elimi kris, false negat danica resul ts. A negat danica resul t does not precl ude the prese nce and/o r devel opmen t of disea se, since the prese nce of abnor mal cells in the sampl e depen ds on the locat ion of the lesio n and sampl ing techn ique. Cass nued regul ar scree viraj is the best metho d of cance r preve ntion . If repor kwesi cytol ogic findi ng do not corre late with physi maria de jesus and/o r histo rical findi ngs, furth er inves tigat ion is recom srinivasan d, as clini phuong kirby nted. Not Available [facility] (Lab) [address], [place], [address], 12/26/2024 10:16:04 01/10/20 25 01/09/2025 pregn silvano test, urine HCG negati ve Not Available [facility] [address], [place], [address], 01/09/2025 13:44:32 12/29/19 24 12/29/2023 US, pelvi s No observ ation record ed. [email or web address] [facility] [address], [place], [address], 12/29/2023 18:32:01 12/29/19 24 12/29/2023 US, trans vagin al No observ ation record ed. [email or web address] [facility] [address], [place], [address], 12/29/2023 18:31:52 12/29/19 24 12/29/2023 US, pelvi s No observ ation record ed. chong [address] [facility], [place], [address], 01/05/2024 15:07:33 04/27/20 24 04/27/2024 MAMMO , scree viraj, digit al, bilat eral No observ ation record ed. [email or web address] [facility] [address], [place], [address], 05/01/2024 10:27:44 04/27/20 24 04/27/2024 MAMMO , scree viraj, digit al, bilat eral No observ ation record ed. CHINA [facility] [address], [place], [address], 05/03/2024 09:34:59 05/25/20 24 05/25/2024 MAMMO , diagn ostic , digit al, bilat eral No observ ation record ed. [email or web address] [facility] [address], [place], [address], 05/31/2024 09:41:49 05/26/20 24 05/25/2024 MAMMO , diagn ostic , digit al, bilat eral No observ ation record ed. [email or web address] [facility] [address], [place], [address], 05/31/2024 09:41:50 12/28/19 25 12/27/2024 US, pelvi s No observ ation record ed. [email or web address] [facility] [address], [place], [address], 12/27/2024 18:31:23 12/28/19 25 12/27/2024 US, trans vagin al No observ ation record ed. [email or web address] [facility] [address], [place], [address], 12/27/2024 18:31:32 12/28/19 25 12/27/2024 US, pelvi s No observ ation record ed. [email or web address] [facility] [address], [place], [address], 12/29/2024 16:39:42 Result Notes None recorded. Problems Name Problem SNOMED Code Status Onset Date Resolution Date Notes Provider Name and Address Organization Details Recorded Time Delivery by elective section [id number] Completed 201405/07/2021 Encounter for delivery without indicatio n;Practic e ID: 0001 T[place], [place] - [facility] 10:07:27 Single liveborn born in hospital by section [id number] Completed 201405/07/2021 Single liveborn , delivered by ; Practice ID: 0001 Tara [facility] 10:07:58 Lochia finding Completed 201405/07/2021 Encounter for routine postpartu m follow-up ;Practice ID: 0001 Tara pham [facility] 10:07:43 Insertio n of intraute rine contrace ptive device Completed 201405/07/2021 Encounter for insertion of intrauter ine contracep tive device;Pr actice ID: 0001 Tara [facility] 10:07:40 Pregnanc y test negative [id number] Completed 201405/07/2021 Encounter for test, result negative; Practice ID: 0001 Tara [facility] 10:07:49 Clinical finding Completed 201405/07/2021 Presence of (intraute rine) contracep tive device;Pr actice ID: 0001 Tara Manzanares [facility] 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 10:08:04 Emotiona l state finding Completed 201505/07/2021 Other specified anxiety disorders ;Practice ID: 0001 Tara Manzanares [facility] 10:07:[address] Concept Completed 201505/07/2021 Encntr for general adult medical exam w/o abnormal findings; Recorded Elsewhere : No Locati on: [facility] So urce: EHR Chron ic: N Practic e ID: 0001 Bill able Time: 09:30:00 AM Tara Manzanares [facility] 1 10:08:02 Amenorrh ea [id number] Completed 201405/07/2021 Absence of menstruat ion;Recor ded Elsewhere : No Locati on: [facility] So urce: EHR Chron ic: N Practic e ID: 0001 Bill able Time: 09:30:00 AM Tara [facility] 1 10:07:20 Routine antenata l care Completed 201405/07/2021 Supervisi on of other normal ;Recorded Elsewhere : No Locati on: [facility] So urce: EHR Chron ic: N Practic e ID: 0001 Bill able Time: 10:30:00 AM Tara [facility] 10:07:53 Speciali zed medical examinat ion Completed 201405/07/2021 Gynecolog ical Examinati on;Record ed Elsewhere : No Locati on: [facility] So urce: EHR Chron ic: N Practic e ID: 0001 Bill able Time: 09:30:00 AM [facility] 1 10:08:07 Pregnanc y test positive [id number] Completed 201405/07/2021 examinati on or test, positive result;Re corded Elsewhere : No Locati on: [facility] So urce: EHR Chron ic: N Practic e ID: 0001 Bill able Time: 09:30:00 AM Tara pham [facility] 1 10:07:51 Speciali zed medical examinat ion Completed 201405/07/2021 Other specified chlamydia l diseases; Practice ID: 0001 Tara pham [facility] 1 10:08:09 Venereal disease screenin g Completed 201405/07/2021 Screening examinati on for venereal disease;P ractice ID: 0001 [facility] 10:08:20 Screenin g for malignan t neoplasm of cervix Completed 201405/07/2021 Pap Smear;Pra ctice ID: 0001 Taar Manzanares [facility] 1 10:07:55 Uterine size for dates discrepa pry [id number] Completed 201405/07/2021 UTERINE SIZE ALVAREZ-ANTEP AR;Practi ce ID: 0001 Tara Manzanares [facility] 1 10:08:17 Ultrason ography Completed 201405/07/2021 screening for malformat ion using ultrasoni cs;Practi ce ID: 0001 Tara Manzanares [facility] 10:08:13 Antenata l screenin g Completed 201405/07/2021 screening for malformat ion using ultrasoni cs;Practi ce ID: 0001 Tara Manzanares [facility] 10:07:22 Congenit al malforma tion [id number] Completed 201405/07/2021 screening for malformat ion using ultrasoni cs;Practi ce ID: 0001 Tara Manzanares [facility] 10:07:26 Spotting per vagina in pregnanc y [id number] Completed 201405/07/2021 SPOTTING- ANTEPARTU M;Practic e ID: 0001 Tara Manzanares [facility] 1 10:08:12 anatomy study Completed 201405/07/2021 [facility] SURVEY;Pr actice ID: 0001 Tara Manzanares [facility] 10:07:33 Placenta previa without hemorrha ge - not delivere d [id number] Completed 201405/07/2021 Placenta previa without hemorrhag e, antepartu m;Practic e ID: 0001 Tara pham, [facility] 1 10:07:47 Excessiv e growth affectin g manageme nt of mother [id number] Completed 201405/07/2021 GROWTH LARGE LGA;Pract ice ID: 0001 Tara [facility], [facility] 1 10:07:31 Uterine scar from previous surgery in pregnanc y, childbir th and the puerperi um - delivere d [id number] Completed 201405/07/2021 PREV C-DELIVER Y-DELIVRD ;Practice ID: 0001 Tara pham, [facility] 1 10:08:15 Single live from singleto n pregnanc y [id number] Completed 201405/07/2021 DELIVER-S ANALILIA LIVEBORN; Practice ID: 0001 Tara Manz[facility], [facility] [address] 10:07:[address] Concept Completed 201505/07/2021 Anxiety;R ecorded Elsewhere : No Locati on: [facility] So urce: EHR Chron ic: N Practic e ID: 0001 Bill able Time: 09:30:00 AM Tara Manzanares [facility] 1 10:08:00 Obesity [id number] Completed 201405/07/2021 Obesity;R ecorded Elsewhere : No Locati on: [facility] So urce: EHR Chron ic: N Practic e ID: 0001 Bill able Time: 09:30:00 AM Tara Manzanares [facility] 1 10:07:45 Problem Notes None recorded. Procedures Surgical History Date Name Laterality Status Provider Name and Address Organization Details Recorded Time 01/10/20 Endometrial Biopsy completed KALI Oquendo [address], [place], [address], [facility] 01/09/2025 13:00:52 12/21/19 25 Date of Last Pap Smear completed Malinda Richardson [facility] 01/22/2025 10:21:57 04/27/20 24 Date of Last Mammogram completed [facility] 12/20/2024 09:15:38 01/12/20 24 Endometrial Biopsy completed KALI Oquendo [address], [place], [address], [facility] 01/12/2024 13:47:59 06/09/20 21 IUD Removal completed Delio Warner MD [address], [place], [address], [facility] 06/09/2021 13:49:12 06/21/20 15 section completed [facility] 12/20/2024 09:55:35 03/09/20 10 Caesarean Section completed [facility] 12/20/2024 09:59:14 Imaging Results None recorded. Procedure Notes None recorded. Medical Equipment None Reported. Allergies Allergen ID Allergen Name Allergen Category Reaction Reaction Severity Criticality Documentation Date Start Date Code Code System Note Provider Name and Address Organization Details Recorded Time 63722 Chlorphen iramine / Methscopo sabina / Phenyleph rine medicatio n Not available Not available Not available 05/07/2021 [id number] [id number] RxNorm Tara Manzanares [facility] 10:58:07 Medications Name Sig Start Date Stop Date Status Note LastModified by Organization Details LastModified Time Mirena 21 mcg/24 hr (up to 8 years) 52 mg intrauter ine device 12/14 completed Prescrib ed Elsewher e: Yes Loca tion: [facility] odify By: morales Manriquez ncounter DateTime : 01/12/20 10:30:00 AM Not Available Not Available Not Available phenazopy ridine 100 mg tablet TAKE 1 TABLET BY MOUTH EVERY DAY AT BEDTIME FOR 7 DAYS 12/14 completed Not Available Not Available Not Available benzonata te 100 mg capsule TAKE 1 CAPSULE BY MOUTH THREE TIMES A DAY NEEDED FOR COUGH 12/20 completed Not Available Not Available Not Available cabergoli ne 0.5 mg tablet TAKE 1/2 TABLET BY MOUTH TWICE WEEKLY active Not Available Not Available No t Available progester one micronize d 200 mg capsule IF AT HOME PREGNANC Y TEST IS NEGATIVE TAKE 1 CAPSULE BY MOUTH DAILY FOR 12 DAYS EVERY 3 MONTHS IF SPONTANE OUS PERIOD DOES NOT OCCUR 12/20 completed Not Available Not Available Not Available omeprazol e 20 mg capsule,d elayed release 20 MG ORALLY DAILY NEEDS APPOINTM ENT FOR FURTHER REFILLS active Not Available Not Available No t Available Vitamin D2 1,250 mcg (50,000 unit) capsule take 1 capsule by oral route every week 01/11 completed Prescrib ed Elsewher e: No [facility] By: morales Manriquez ncounter DateTime : 12/05/19 16 01:18:48 PM Not Available Not Available Not Available Augmentin 500 mg-125 mg tablet take 1 tablet by oral route every 12 hours 02/12 completed Prescrib ed Elsewher e: No Locat ion: [facility] odify By: [email or web address] Anila ncounter DateTime : 12/27/19 15 02:55:35 PM Not Available Not Available Not Available Wellbutri n XL 300 mg 24 hr tablet, extended release take 1 tablet by oral route every day 01/11 completed Prescrib ed Elsewher e: No Locat ion: [facility] odify By: morales Manriquez ncounter DateTime : 01/14/20 16 09:30:00 AM Not Available Not Available Not Available omeprazol e 12/20 completed Not Available Not Available Not Available cholecalc iferol (vitamin D3) 1,250 mcg (50,000 unit) capsule TAKE ONE CAPSULE BY MOUTH EVERY WEEK 12/20 completed Not Available Not Available Not Available Triveen-D uo DHA 29 mg-1 mg-400 mg oral pack take 2 by Oral route once for 30 days 12/26 completed Prescrib ed Gian e: No Locat ion: [facility] Kenan odamanda By: anusha cosme DateTime : 11/28/19 09:30:00 AM Not Available Not Available Not Available Vitals Date Recorded Body height Body mass index (BMI) Body weight Systolic blood pressure Diastolic blood pressure Provider Name and Address Organization Details Last Updated DateTime 12/20/2024 162.56 cm 39.8 kg/m2 820530.4 3 g 117 mm[Hg] 81 mm[Hg] [facility] 5 09:51:50 Date Recorded Body height Body mass index (BMI) Body weight Systolic blood pressure Diastolic blood pressure Provider Name and Address Organization Details Last Updated DateTime 01/09/2025 162.56 cm 40 kg/m2 989056.3 g 128 mm[Hg] 84 mm[Hg] [facility] 5 12:26:04 Date Recorded Body height Body mass index (BMI) Body weight Systolic blood pressure Diastolic blood pressure Provider Name and Address Organization Details Last Updated DateTime 01/12/2024 162.56 cm 40.3 kg/m2 790833.2 1 g 136 mm[Hg] 85 mm[Hg] Elizabeth Valentine [facility] 4 12:28:27 Date Recorded Body height Body mass index (BMI) Body weight Systolic blood pressure Diastolic blood pressure Provider Name and Address Organization Details Last Updated DateTime 01/22/2025 162.56 cm 40 kg/m2 809324.0 2 g 117 mm[Hg] 78 mm[Hg] Malinda Richardson [facility] 5 10:20:51 Social History Question Answer Notes LastModified by Organizat ion Details LastModified Time Tobacco Smoking Status Never Smoker Elizabeth Valentine [facility] 12/15/2023 10:03:50 Do You Have An Advance Directive? No Information n ot available 05/07/2021 Are You Blind Or Do You Have Difficulty Seeing? No Information n ot available 05/07/2021 What Is Your Level Of Caffeine Consumption? Moderate Information not available 05/07/2021 How Much Tobacco Do You Chew? None Information not available 05/07/2021 In The 14 Days Before Symptom Onset, Have You Had Close Contact With A Laboratory-confirm ed COVID-19 While That Case Was Ill? No Information n ot available 05/07/2021 In The 14 Days Before Symptom Onset, Have You Had Close Contact With A Person Who Is Under Investigation For COVID-19 While That Person Was Ill? No Information not available 05/07/2021 Have You Been To An Area Known To Be High Risk For COVID-19? No Information not available 05/07/2021 Are You Deaf Or Do You Have Serious Difficulty Hearing? No Information not available 05/07/2021 What Type Of Diet Are You Following? REGULAR Information n ot available 05/07/2021 What Is The Highest Grade Or Level Of School You Have Completed Or The Highest Degree You Have Received? [id number] Information not available 05/07/2021 Are There Any Guns Present In Your Home? No Information not available 05/07/2021 Do You Use Protection During Sex? Always Information not available 05/07/2021 Do You Use Your Seat Belt Or Car Seat Routinely? Yes Information not available 05/07/2021 Do You Have Smoke And Carbon Monoxide Detectors In Your Home? Yes Information not available 05/07/2021 How Much Tobacco Do You Smoke? No Information not available 05/07/2021 Do You Use Sunscreen Routinely? Yes Information not available 05/07/2021 Have You Used IV Drugs? No Information not available 05/07/2021 Sex: Unknown Functional Status Question Answer Note LastModified by Organizat ion Details LastModified Time Do you use any illicit or recreational drugs? No Information not available 05/07/2021 What is your level of alcohol consumption? Occasional Information not available 12/15/2023 Are you able to walk? 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 Occasional Information not available 05/07/2021 Mental Status Question Answer Note LastModified by Organization D etails LastModified Time Do you feel stressed (tense, restless, nervous, or anxious, or unable to sleep at night)? [id number] [email or web address] Information not available 12/15/2023 Family History Relationship Description Onset Age of this Age Resolved Age Notes LastModified by Organization Details LastModified Time Father Diabetes mellitus Not available 2020 10:11:42 Maternal Grandmother Diabetes mellitus Not available 2020 10:11:55 Mother Hypertensive disorder [email or web address] Not available 2023 09:55:41 Medical History Condition Response Allergies (Food, seasonal, environmental ) N Other Y Breast Cancer N Drug/Latex Allergies/Reactions N Blood Transfusion N Dermatologic Disorders N Lung Disease N Defects or Inherited Disease N Breast Problem N Gestational Diabetes N Hematologic disorders N Anesthesia Complications N History of STI N Deep Vein Thrombosis N Polycystic ovary syndrome N Anxiety Disorder N Autoimmune disease N Arthritis N Infertility N Polyps N Acid Reflux (GERD) N History of abnormal pap N Cancer N Stroke N Varicosities N Neurologic/Epilepsy Y Endometriosis N High Cholesterol N Headaches N Fibromyalgia N Kidney Disease N Heart Problems N Kidney or Bladder Problems N Thyroid Problems N GI Problems N Eating Disorder N Anemia N Art (IVF or FET) N Psychiatric Illness N Ovarian Cancer N Diabetes N Pulmonary (TB, Asthma) N Hepatitis/Liver Disease N No Past Medical History N Eczema N Urinary Tract Infection N Abuse/Domestic Violence N Asthma N Trauma/Violence N Depression/ depression N Heart Disease N Pre-Eclampsia N Hypertension N Osteoporosis N Thrombophilias N Gynecological History Statement/Question Response Date of Last Mammogram 04/27/2024 Date of LMP 01/05/2025 N Was last menstrual period normal Y STIs/STDs N Date of Last Colonoscopy IUD Desired Control Method IUD Abnormal Pap N On BCP's at Conception? N HPV Vaccine Y Duration of Flow (days) 5 Current Control Method Condoms Age at First Child 20 Are cycles usually normal Y Frequency of Cycle (Q days) 28 Most Recent Bone Density Sexually Active? Y Menses Monthly N Date of DEXA bone scan Age of first menstrual cycle 12 Date of Last Pap Smear 12/20/2024 Sexual Problems? N LMP Definite N Obstetrics History GPAL:G 3 P 3 0 0 3 Type Value Full Term 3 Living 3 Total 3 Past Encounters Encounter ID Performer Location Encounter Start Date Encounter Closed Date Diagnosis/Indication Diagnosis SNOMED-CT Code Diagnosis ICD10 Code Diagnosis Note [id number] Lisa Simpson , [facility] [address] [place] [address] 05/07/2021 10:35:36 05/07/2021 13:48:08 Gynecologic examination 39185355 Z01.419 Suggested Calcium with Vitamin D 1200-1500m g daily. Patient advised to get an annual flu shot in the fall and she could obtain at [facility] or [facility] care clinic. Also to obtain TDap vaccinatio n if you have not had one in the last 10 years. Recommend yearly mammograms . Encouraged monthly self breast exams. Encourage safe sexual practices, to use condoms and limit partners if not already in a monogamous relationsh ip. Engage in daily exercise of low impact aerobic exercise 45-60 minutes 4-5 times weekly. Avoid tobacco and illicit drugs as well as using moderation with alcohol intake less than 1-2 8 oz beverages daily. This lifestyle behavior pattern will lead to less health conditions and longer life span. If BMI greater than 25 weight watchers or dietary consult advised. All questions have been answered. Patient appears to understand informatio n, but if you have any questions please call or respond to this email. Pap/hpv sentSTD Rommel vasquez 08/05/2015 (due to be replaced 1-2wks prior to this date since good for 6yrs).She will schedule this appt.mammo ordered Chronic pe lvic pain of female 802052850 R10.2 Having this heavy pelvic pressure upon awakening every morning for the last 6mos.Unsur e of where this is stemming from (i.e. master cook issues, osteoarthr itis, etc)This issue stops a few hours after up & moving around.She does voice that voiding does help to relieve some of the discomfort of the pressure.S he drinks a lot of caffeinate d beverages some carbonated & some not.No other sx's that she can connect to this issue.BM's are regularVoi ding q2-4hrs during day & 0-1x a night. Will update USIUD checkTrial of pyridium nightly x 7 daysDecrea se caffeine intake & increase water intake to at least 64oz a day. RTO x 2-4wks to discuss results & med check Patient is to contact office or go to nearest ED/Urgent care if fever >/= 100.1, pain, excessive bleeding, unusual drainage or swelling in area of concern; or experienci ng worsening sx's or new onset of concerning sx's. Understand ing verbalized . All questions answered to patient satisfacti on. Spasm of u rinary bladder [id number] N32.89 [id number] Delio Warner MD [place] [address],[facility] [place] [address] 05/07/2021 15:56:25 05/08/2021 14:14:54 Pain in pelvis [id number] R10.2 T83.39XA [id number] Lisa Simpson [facility] [address],[facility] [place] [address] 05/23/2021 12:27:33 05/23/2021 14:51:45 Pain in pelvis 52203249 R10.2 R10.9 Today after review of TVUS which was wnl we agreed to pursue abd/pelvic CT scan to ensure no other issues (GI, Kidney/Lupillo dder etc) that would be contributi ng to the heavy abdominal/ pelvic pressure that she is feeling. Pyridium for bladder did not change any of her sx's; and she has no prominent urinary sx's. In addition, we agreed today to remove/ins ert new IUD sooner than 6yr iza; the US showed it was in the MICHELLE near her C/S Scar which may/may not create the sensation she is feeling. Time spent in visit is a total of 15 mins with at least 50% of visit consisting of counseling and review of plan of care.Addit ional precaution vineet measures were taken to minimize potential exposure to the Covid-19 virus during this patient s visit, including available hand live source operator upon arrive, temperatur e check and being asked a series of screening questions. All staff wore face coverings during this encounter, as well as provided additional cleaning and sanitizing of all surfaces, including countertop s, pens, chairs, door handles, light switches, etc, prior to and following the patient s visit. [id number] Delio Warner MD [place] [address],[place] [address] 06/09/2021 12:11:37 06/09/2021 13:51:12 Malposition of intrauterine contraceptive device [id number] T83.32XS the IUD was removed without complicati ons. She tolerated the procedure well. [id number] KALI Oquendo [place] [address],[place] [address] 12/15/2023 09:54:11 12/15/2023 11:21:33 Gynecologic examination 81563414 Z01.419 WWEpap updateddec lined STI screenmamm ogram order givenencou raged annual exam with PCP Suggested Calcium with Vitamin D daily. Patient advised to get an annual flu shot in the fall and she could obtain at [facility] or [facility] care clinic. Also to obtain TDap vaccinatio n if you have not had one in the last 10 years. Recommend yearly mammograms . Encouraged monthly self breast exams. Encourage safe sexual practices, to use condoms and limit partners if not already in a monogamous relationsh ip. Engage in daily exercise of low impact aerobic exercise 45-60 minutes 4-5 times weekly. Avoid tobacco and illicit drugs. This lifestyle behavior pattern will lead to less health conditions and longer life span. If BMI greater than 25 dietary consult advised. All questions have been answered. Patient appears to understand informatio n, but if you have any questions please call or respond to this email. Amenorrhea 03168559 N91. 2 labs and pelvic u/s orderedRTC for f/u to review Adult heal th examination 369810538 Z00.00 Screening for malignant neoplasm of breast 175985304 Z12.39 Weight gain 2233783 R63. 5 encouraged customer strategy manager consult, regular exercisela bs ordered - will f/u to review Reduced libido 9428836 R 68.82 discussed complex topiclabs ordered and will discuss management options further at f/u Time spent in visit is a total of 45mins with at least 50% of visit consisting of counseling and review of plan of care. [id number] Delio Warner MD [place] [address],[place] [address] 12/29/2023 17:23:38 12/30/2023 03:25:41 Amenorrhea 76063745 N91.2 [id number] Caro Gil AVA [place] [address],[place] [address] 01/05/2024 14:25:56 01/05/2024 15:20:01 Screening procedure Z13.9 Hyperprolactinemia 60564 2004 E22.1 Discussed recent labsprolac tin elevated at 156 : referral to endocrine sent, pt has appointmen t scheduled for next monthrevie wed updated pelvic u/s : endo 18mm. Recommende d EMB. R/b/a of EMB discussed with patient. Continue to abstain from IC until EMB, bhcg day prior.disc ussed cyclic progestero ne pending normal EMBgc/ct/t rich testing sentRTC for EMB Time spent in visit is a total of 25mins with at least 50% of visit consisting of counseling and review of plan of care. Irregular periods 881252 07 N92.6 Venereal d isease screening 394923978 Z11.3 [id number] Caro Gil AVA [place] [address],[place] [address] 01/12/2024 12:23:38 01/12/2024 13:51:48 Screening procedure Z13.9 Amenorrhea 87197629 N91. 2 EMB consent reviewed and signedEMB performed (see procedure note)preca utions reviewedwi ll update pt with results when availabled iscussed cyclic progestero ne pending normal EMB until endocrinol ogy consultque stimichael answered [id number] Caro Gil AVA [place] [address],[place] [address] 12/20/2024 09:42:31 12/20/2024 10:35:57 Gynecologic examination 87937884 Z01.419 Z11.51 WWEPap - done todaySTI screen - declinedMa mmogram - order givenColon cancer screening - [facility] yr or sooner if needed Suggested Calcium with Vitamin D daily. Patient advised to get an annual flu shot in the fall and she could obtain at local pharmacy. Also to obtain TDap vaccinatio n if you have not had one in the last 10 years. Recommend yearly mammograms . Encouraged monthly self breast exams. Encourage safe sexual practices, to use condoms and limit partners if not already in a monogamous relationsh ip. Engage in regular exercise. Avoid tobacco and illicit drugs. This lifestyle behavior pattern will lead to less health conditions and longer life span. If BMI greater than 25 dietary consult advised. All questions have been answered. Screening for malignant neoplasm of breast 100770806 Z12.39 Contracept ion care management 556817969 Z30.9 We discussed all optionsint in Mirena IUD, r/b/a reviewedwe agreed to recheck pelvic u/s d/t hx prior to insertion, if wnl will proceed with IUD insertion with next periodpelv ic u/s scheduled [id number] Delio Warner MD [place] [address],[place] [address] 12/27/2024 12:25:46 12/27/2024 13:10:49 Endometrium thickened 346988054 R93.89 [id number] KALI Oquendo [place] [address],[place] [address] 01/09/2025 12:11:16 01/09/2025 13:55:33 Endometrium thickened 901060415 R93.89 EMB attempted today and discontinu ed (see procedure note)Consu lt scheduled with Dr. Warner to discuss hysterosco py D&C with Mirena IUD placementq uestions answered, precaution s discussed Contracept ion care management 675428953 Z30.9 Venereal d isease screening 760357478 Z11.3 gc/ct/tric h urine testing sent [id number] Delio Warner MD [place] [address],[place] [address] 01/22/2025 09:55:12 01/22/2025 11:09:30 Endometrium thickened 127435586 R93.89 this patient is a 44-year-ol d female with endometria l thickening . She has a history of amenorrhea . We have agreed to perform hysterosco py D&C and IUD placement under anesthesia . 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 She understand s the risks, benefits, and alternativ es. She has completed the informed consent process and is ready to proceed. Insertion of intrauterine contraceptive device 05150388 Z30.430 Health Concerns Section Related Observation LastModified by Organization Detai ls LastModified Time None Recorded Concern Status LastModified by Organization Details LastModified Time None Recorded Advance Directives Directive N: Payers Encounter Date Sequence Insurance Name Policy Number Policy Leos Covered Member ID Leos Member ID Guarantor Name 01/12/2024 1 [facility] [id number] Herbie Starks [id number] Juli Brambilager 12/20/2024 1 [facility] [id number] Herbie Grayson Raudel [id number] Juli Brambilager 12/27/2024 1 [facility] [id number] Herbie Grayson Raudel [id number] Juli Brambilager 01/09/2025 1 [facility] [id number] Herbie M Raudel [id number] Juli Brambilager 01/22/2025 1 [facility] [id number] Herbie Kenan Raudel [id number] Juli Brambilager Notes Date Note Type Note Provider Name and Address Organization Details Recorded Time 4 text/html 43yopresents for EMB she had a Mirena IUD in place for about 7 years, removed in 2020. Has not had any periods since IUD removal. Prior to IUD placement she had normal/monthly periods, no h/o skipping months. Denies any night sweats/hot flashes or hirsutism.Decreased libido, SA with steady male partnerlast IC 8 months agolabs done elevated prolactin 156 - has appointment with endocrine scheduled for next month KALI Oquendo [address], [place], [address], [place] [facility] 01/12/2024 13:50:45 5 text/html Annual GYNReported bypatient.Menstrual cycle:Normal menses Urinary symptoms:No hematuria; No incontinence Vulva:No genital lesion Vagina:Normal vaginal discharge Breast:No breast pain; No breast lump; No nipple discharge Sexual complaints:No sexual complaints; No pain during intercourse; Normal libido Menopausal Symptoms:No menopausal symptoms; Normal vaginal lubrication Psychological symptoms:No depression; No anxiety; No PMDD Preventive measures:Encourage self breast examination; Encourage regular exercise; Encourage no tobacco use; Encourage regular mammograms starting age 40Notes:44yo wwelast pap 11/2023 : nilm, HPV (-) last yr was seen for amenorrhea following Mirena IUD removal, emb done, elevated prolactin - seen endocrine and diagnosed with pituitary microadenoma. Started cabergoline and since then periods have returned. Would like to discuss getting Mirena again mammogram 04/2024 : bi-rads 4. Went for biopsy but states they determined biopsy was not needed KALI Oquendo [address], [place], [address], [facility] 12/20/2024 14:44:24 5 text/html 44yopresents for EMB and Mirena IUD insertioncurrently on her period KALI Oquendo [address], [place], [address], [facility] 01/09/2025 13:49:41 5 text/html this patient is a 44-year-old female with endometrial thickening. She has a history of amenorrhea. We have agreed to perform hysteroscopy D&C and IUD placement under anesthesia. 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 She understands the risks, benefits, and alternatives. She has completed the informed consent process and is ready to proceed. The patient understands the procedure. The procedure was described to the patient in great detail. the patient also understands the risks. The risks were also explained in detail. She understands that injuries May occur during surgery. She understands these injuries can result in hospitalization, more surgery, and severe illness. She understands there is risk of hemorrhage and infection. Delio Warner MD [address], [place], [address], [facility] 01/22/2025 11:08:04 OBGyn Episode Ob Episode Information Episode Created Date Number of Fetuses Patient Bloodtype Patient rh Status Prepregnancy Weight lbs Domestic Partner Domestic Partner Phone Father Name Take Out Waitress Status 05/07/20 21 1 CLOSED Fetus Data First Name Last Name Admitted to NICU Weight (g) Sex Living Outcome Pediatric Complications Fetus ID Race Codes Race Delivery Type 3628.73 6 F Full Term [id number] Primary Nicolás Calculation Initial Nicolás Date Initial Exam Date Initial Exam Provider Initial Ultrasound Date Last Menstrual Period Date Ultra Sound Weeks Gestation 0 Eighteen To Twenty Week Nicolás Update Ultra Sound Date Fundal Height At Umbil Quickening Date Ultra Sound Latest Weeks Gestation Final Nicolás Confirmed By Final Nicolás Confirmed Date Final Nicolás Date Ultra Sound Latest Days Gestation 0 0 Menstrual History Last Menstrual Date Menses Monthly On Bcp Conception Prior Menses Frequency Hcg Plus Date Menarche Onset Age Delivery Information Delivery Date Delivery Type Labor Anesthesia Weeks Gestation Incision Type Labor Labor Length Hrs Delivered By Post Complications Tubal Sterilization Discharge Date Comments 0 40 Discharge Information Feeding Method Contraceptive Method Maternal HG B and HCT Levels Ob Episode Information Episode Created Date Number of Fetuses Patient Bloodtype Patient rh Status Prepregnancy Weight lbs Domestic Partner Domestic Partner Phone Father Name Take Out Waitress Status 05/07/20 21 1 CLOSED Fetus Data First Name Last Name Admitted to NICU Weight (g) Sex Living Outcome Pediatric Complications Fetus ID Race Codes Race Delivery Type 3458.63 9 F Full Term [id number] Repeat Nicolás Calculation Initial Nicolás Date Initial Exam Date Initial Exam Provider Initial Ultrasound Date Last Menstrual Period Date Ultra Sound Weeks Gestation 0 Eighteen To Twenty Week Nicolás Update Ultra Sound Date Fundal Height At Umbil Quickening Date Ultra Sound Latest Weeks Gestation Final Nicolás Confirmed By Final Nicolás Confirmed Date Final Nciolás Date Ultra Sound Latest Days Gestation 0 0 Menstrual History Last Menstrual Date Menses Monthly On Bcp Conception Prior Menses Frequency Hcg Plus Date Menarche Onset Age Delivery Information Delivery Date Delivery Type Labor Anesthesia Weeks Gestation Incision Type Labor Labor Length Hrs Delivered By Post Complications Tubal Sterilization Discharge Date Comments 5 39.1 Discharge Information Feeding Method Contraceptive Method Maternal HG B and HCT Levels Ob Episode Information Episode Created Date Number of Fetuses Patient Bloodtype Patient rh Status Prepregnancy Weight lbs Domestic Partner Domestic Partner Phone Father Name Take Out Waitress Status 05/07/20 21 1 CLOSED Fetus Data First Name Last Name Admitted to NICU Weight (g) Sex Living Outcome Pediatric Complications Fetus ID Race Codes Race Delivery Type 3628.73 6 Full Term [id number] Vaginal Delivery Nicolás Calculation Initial Nicolás Date Initial Exam Date Initial Exam Provider Initial Ultrasound Date Last Menstrual Period Date Ultra Sound Weeks Gestation 0 Eighteen To Twenty Week Nicolás Update Ultra Sound Date Fundal Height At Umbil Quickening Date Ultra Sound Latest Weeks Gestation Final Nicolás Confirmed By Final Nicolás Confirmed Date Final Nicolás Date Ultra Sound Latest Days Gestation 0 0 Menstrual History Last Menstrual Date Menses Monthly On Bcp Conception Prior Menses Frequency Hcg Plus Date Menarche Onset Age Delivery Information Delivery Date Delivery Type Labor Anesthesia Weeks Gestation Incision Type Labor Labor Length Hrs Delivered By Post Complications Tubal Sterilization Discharge Date Comments 1 40 Discharge Information Feeding Method Contraceptive Method Maternal HG B and HCT Levels
--- OUTSIDE RECORDS SUMMARY | 2025-03-07 01:19 | XMS_ITS | Clinical Summary ---
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 Gender Identity Not on file Sexual Orientation Not on file Obstetrics History Last Filed Vital Signs Vital Sign Reading [...] 01/31/2024 6:33 PM CDT Plan of Treatment Health Maintenance Due Date Last Done Comments Cervical Cancer Screening 1980 Depression Screening 1980 Hepatitis C Screening 1980 Varicella Vaccines (1 of 2 - 13+ 2-dose series) 1993 Hepatitis B Screening 1998 Regular Well Visit/Exam 18-64 1998 DTaP/Tdap/Td Vaccine (2 - Td or Tdap) 03/12/2020 03/12/2010 Covid-19 Vaccine ( - 2023-2 5 season) 2024 07/16/2021, 12/17/2020, 11/26/2020 Breast Cancer Screening-Mammogram 05/25/2025 05/25/2024, 04/27/2024 Influenza Vaccine (Season Ended) 2025 07/16/2021 HPV Vaccines Aged Out No longer eligi ble based on patient's age to complete this topic Pneumococcal vaccine <65 Aged Out No longer eligible based on patient's age to complete this topic Procedures Procedure Name Priority Date/Time Associated Diagnosis [...] Most Recently Relevant to Health Maintenance [facility] [address] [employer] H[employer]/PPO Address: [address] [place] [address] [employer] H[employer]/PPO Address: [address] [address] [place] [phone] [facility] [employer] H[employer]/PPO Address: [address] [address] Care Teams Beekeeper Relationship Specialty Start Date End Date Lorraine Brand DO [employer] [facility] [place] [address] PCP - General Family Medicine 01/31/24
[2025-03-07 06:41] VITALS: BP 127/81; PULSE 84; RESP 16; TEMP 37; O2SAT 99
[2025-03-07] MEDS: ACETAMINOPHEN 500 MG TABLET 1000 MG PO (06:55)
[2025-03-07] MEDS: LACTATED RINGERS 1,000 ML 30 ML IV CONT (07:00)
--- NOTE | 2025-03-07 07:56 | WPDANESEPPF ---
Anes - Initial Pre Proc Eval Procedure: Operation Date: 03/07/25 08:30 Proposed Procedures p Hysteroscopy Dilation and Curettage - Delio Warner MD Date/Time: 03/07/25 07:56 Surgeon: Delio Warner MD Pre Op Diagnosis: thickened endometrium Patient Data Age: 44 Gender: F Height: 1.65 m Weight: 107.1 kg Last Vital Signs Temp 37.0 C 03/07/25 06:41 Pulse 84 03/07/25 06:41 Resp 16 03/07/25 06:41 BP 127/81 03/07/25 06:41 Pulse Ox 99 03/07/25 06:41 O2 Del Method Room Air 03/07/25 06:41 Allergies Allergy/AdvReac Type Severity Reaction Status Date / Time chlorpheniramine (From Allergy Throat Verified 03/07/25 06:51 Extendryl) swelling dexchlorpheniramine (From Allergy Throat Verified 03/07/25 06:51 Extendryl) swelling phenylephrine (From Allergy Throat Verified 03/07/25 06:51 Extendryl) swelling Home Medications ?Medication ?Instructions ?Recorded ?Confirmed ?Type cabergoline 0.5 mg tablet 0.25 mg PO 2XW 06/21/24 02/27/25 History omeprazole 20 mg capsule,delayed 20 mg PO DAILY PRN heartburn 02/27/25 02/27/25 History release Patient hx anesthesia problems: none Family hx anesthesia problems: none Results Review: All pre-operative results and documents have been reviewed as part of the pre-operative evaluation. [facility] Past Medical History Medical History Headache Surgical History Surgical History H/O section Family History Family History Father Diabetes mellitus Family history of polycystic kidney disease Family history of cancer Family history of stroke Mother Hypertension Grandparent Family history of polycystic kidney disease Family history of cancer Social History Social History Smoking status: Never smoker Second hand tobacco smoke exposure: No Alcohol intake: never Substance use: never Substance use type: does not use Do You Feel Safe in your Home?: Yes Lack of Transportation: No Lack of Food: Never True Current Housing: I Have Housing Concerned About Future Housing: No Difficulty Paying Gas/Electric Bills: No Difficulty Paying for Meds: No Currently Unemployed: No Education: High School Diploma/GED Difficulty w/ Childcare or Family Care: No Spiritual care concerns: No Anes - Eval Final PreProcedure Day of Procedure 03/07/25 07:56 Patient weight: obese Heart: regular rate and rhythm Lungs: clear to auscultation Airway: Mallampati scale class II Neurological: alert and oriented Last oral intake: >/= 8 hours ASA classification: II Emergent: no Anesthetic plan: proceed Anesthesia type and monitoring: general GIVS and standard monitoring Results Review: All pre-operative results and documents have been reviewed as part of the pre-operative evaluation. Informed Consent: The patient's anesthetic plan and its attendant risks and benefits were discussed with the patient/family/POA. Questions were solicited and answers provided to the satisfaction of the patient/family/POA.
[2025-03-07 08:06] LABS: BEDSIDEPREGUCG Negative (Negative)
--- NOTE | 2025-03-07 08:25 | P.HP_ITS ---
H&P: HPI History of Present Illness Date/Time: 03/07/25 08:25 Chief Complaint: Amenorrhea, endometrial thickening Narrative: This patient is a 44-year-old female with amenorrhea and endometrial thickening. We agreed to perform hysteroscopy D&C with IUD insertion. She understands risks, benefits, and alternatives. She has completed informed consent process and is ready to proceed. The patient understands the details of the procedure. The procedure has been explained in detail. She understands the risks. She understands that injuries may occur that result in hospitalization, more surgery, and severe illness. She understands risk of hemorrhage and infection. She denies any chest pain or shortness of breath. She denies any nausea, vomiting, fever, chills. Review of Systems Review of Systems: All systems reviewed & are unremarkable except as noted in HPI and below Constitutional: Constitutional: Denies chills, Denies fatigue, Denies fever(s) and Denies weakness Eyes: Eyes: Denies blurry vision, Denies change in vision, Denies loss of peripheral vision, Denies loss of vision, Denies other visual disturbances and Denies eye pain ENT: Denies vertigo, Denies dizziness, Denies hearing loss, Denies mouth pain, Denies nasal obstruction, Denies neck mass and Denies neck pain Cardiovascular: Cardiovascular: Denies chest pain, Denies diaphoresis, Denies syncope, Denies leg edema and Denies dyspnea Respiratory: Respiratory: Denies chest congestion, Denies cough, Denies hemoptysis, Denies dyspnea and Denies wheezing Gastrointestinal: Gastrointestinal: Denies abdominal pain, Denies constipation, Denies diarrhea, Denies nausea and Denies vomiting Genitourinary: Genitourinary: Denies hematuria, Denies change in libido, Denies nocturia, Denies genital lesions, Denies flank pain and Denies urinary urgency Musculoskeletal: Musculoskeletal: Denies abnormal gait, Denies back pain, Denies myalgias, Denies arthralgias, Denies joint swelling, Denies muscle weakness and Denies neck pain Integumentary/Breasts: Skin/Breast: Denies swelling, Denies breast pain, Denies breast mass, Denies dry skin, Denies nipple discharge, Denies unusual bruising and Denies jaundice Neurologic: Denies Neuro-related abnormal movements, Denies Abnormal speech present, Denies abnormal gait, Denies behavioral changes, Denies confusion, Denies vertigo, Denies dizziness, Denies syncope, Denies loss of vision, Denies memory loss, Denies convulsions and Denies weakness Psychiatric: Psychiatric: Denies abnormal sleep pattern, Denies behavioral changes, Denies change in libido, Denies confusion, Denies depression, Denies anhedonia and Denies memory loss Endocrine: Endocrine: Reports no additional endocrine complaints, Denies change in libido and Denies fatigue Hematologic/Lymphatic: Hematologic/Lymphatic: Reports no additional hematologic/lymphatic complaints Allergic/Immunologic: Allergic/Immunologic: Reports no additional allergic/immunologic complaints and Denies wheezing PMFSH Past Medical History Medical History Headache Surgical History Surgical History H/O section Family History Family History Father Diabetes mellitus Family history of polycystic kidney disease Family history of cancer Family history of stroke Mother Hypertension Grandparent Family history of polycystic kidney disease Family history of cancer Social History Social History Smoking status: Never smoker Second hand tobacco smoke exposure: No Alcohol intake: never Substance use: never Substance use type: does not use Do You Feel Safe in your Home?: Yes Lack of Transportation: No Lack of Food: Never True Current Housing: I Have Housing Concerned About Future Housing: No Difficulty Paying Gas/Electric Bills: No Difficulty Paying for Meds: No Currently Unemployed: No Education: High School Diploma/GED Difficulty w/ Childcare or Family Care: No Spiritual care concerns: No Meds Home Medications and Allergies Home Medications ?Medication ?Instructions ?Recorded ?Confirmed ?Type cabergoline 0.5 mg tablet 0.25 mg PO 2XW 06/21/24 02/27/25 History omeprazole 20 mg capsule,delayed 20 mg PO DAILY PRN heartburn 02/27/25 02/27/25 History release Allergies Allergy/AdvReac Type Severity Reaction Status Date / Time chlorpheniramine (From Allergy Throat Verified 03/07/25 06:51 Extendryl) swelling dexchlorpheniramine (From Allergy Throat Verified 03/07/25 06:51 Extendryl) swelling phenylephrine (From Allergy Throat Verified 03/07/25 06:51 Extendryl) swelling Vital Signs Vital Signs - 24 hr 03/07/25 06:41 Temperature 98.6 F Pulse Rate 84 Respiratory Rate 16 Blood Pressure 127/81 Pulse Oximetry 99 Oxygen Delivery Room Air Exam Const: General: cooperative, healthy appearing, comfortable and no acute distress Orientation/consciousness: oriented to person, oriented to place and oriented to time HENMT: Head: normal to inspection Ears: external ears normal Face/Nose/Sinus: Normal external nose present and normal facial exam Face and sinus: normal facial exam Eyes: General: appearance normal, both eyes and all related structures Neck: Neck: normal visual inspection, trachea midline and supple Resp: Auscultation: clear to auscultation bilaterally, no crackles, no rales, no rhonchi and no wheezes Cardio: Rate: regular rate Rhythm: regular rhythm Heart sounds: no click, no murmurs and no rubs GI: GI Palp: No abdominal tenderness, No Soft to palpation, No Tenderness to palpation present (GI) and No Palpable mass present Auscultation: normal bowel sounds Skin: General skin exam: normal color and no rashes or lesions noted Neuro: General: oriented to person, oriented to place and oriented to time Extrem: General: normal to inspection, no joint enlargement, no clubbing, cyanosis or edema, no pedal edema and no calf tenderness Psych: Appearance: grossly normal Mental Status: mental status grossly normal Speech and movement: Normal speech and movement present Assessment and Plan Assessment and plan (1) Amenorrhea: Code(s): N91.2 - Amenorrhea, unspecified Status: Acute (2) Endometrial thickening on ultrasound: Code(s): R93.89 - Abnormal findings on diagnostic imaging of other specified body structures Status: Acute Plan This patient is a 44-year-old female with amenorrhea and endometrial thickening. We agreed to perform hysteroscopy D&C with IUD insertion. She understands ris ks, benefits, and alternatives. She has completed informed consent process and is ready to proceed.
--- NOTE | 2025-03-07 08:27 | PM.OBTRLD ---
OB - Triage/Final Diagnosis Visit Information Comments/Additional reasons for admission: I have assessed the risk for this patient, Juli Sanchez, and determined that she would benefit from observation care. Evaluation Laboratory results: Laboratory Tests 03/07/25 08:02 POC Urine HCG, Qual Negative Vital signs: Vital Signs - 24 hr 03/07/25 06:41 Temperature 98.6 F Pulse Rate 84 Respiratory Rate 16 Blood Pressure 127/81 Pulse Oximetry 99 Oxygen Delivery Room Air
--- NOTE | 2025-03-07 08:29 | WPDHPUPDATE1 ---
History and Physical Update Update Date/Time: 03/07/25 08:29 History and Physical has been reviewed, including an updated exam of the patient. There are NO changes in the patient's condition. Risks, benefits, and alternatives have been discussed and questions answered. Patient agrees to proceed with procedure.
--- NOTE | 2025-03-07 08:52 | S_PTH ---
PATIENT: Juli Sanchez LOC: [facility] U#:[id number] AGE/SX: 44/F ROOM: RE03/07/[address]: Delio Warner MD : 1980 BED: DIS: 03/07/2025 SPEC #: [id number] RECD: 03/07/25 10:22 STATUS: RAY REQ #: [id number] SUMEET: 03/07/25 08:[address]: Delio Warner DEPT: [facility] Surgical RECD BY: Anne-Marie Obrien ENTERED: 03/07/25 10:22 SP TYPE: Surgical OTHR DR: Lorraine Brand, Tissues: A - Endometrial Curettings Procedures: Hematoxylin and Eosin Stain Gross and Microscopic Level 4
[2025-03-07 09:07] VITALS: BP 113/71; PULSE 82; RESP 16; O2SAT 95
--- NOTE | 2025-03-07 09:22 | W.PM.PROC2 ---
Procedure Note - Detailed Date of Procedure 03/07/25 Pre-op Diagnosis thickened endometrium Post-op Diagnosis Same Procedure Performed Hysteroscopy D&C, IUD insertion Surgeon Delio Warner MD Anesthesia MAC Indications abnormal uterine bleeding Findings 12 cm uterus, normal vulva, vagina, cervix. Thickened endometrium. Description of Procedure the patient was taken the operating room. She was prepped and draped in the dorsal lithotomy position after induction of mac anesthesia. A speculum was placed in the vagina. The cervix was grasped with a tenaculum. The cervix was dilated about 1 cm. The hysteroscope was inserted. The intrauterine cavity and endocervix were evaluated. Hysteroscope was withdrawn. A medium-size curette was used to curettage all the surfaces were within the endometrial cavity. the sample was collected on Telfa and sent to pathology. The hysteroscope was reinserted and the above findings were noted. IUD was inserted in the applicator. Was placed in the endometrial cavity and released. String was trimmed Patient tolerated the procedure well. The speculum and tenaculum were removed. She was taken recovery room in stable condition. Sponge lap and needle counts were correct x2. Estimated Blood Loss 40 Drains No Packing No Pathology Yes Complications No immediate complications Condition Stable Disposition PACU
[2025-03-07 09:40] VITALS: BP 106/70; PULSE 70; RESP 16; O2SAT 96
[2025-03-07 10:10] VITALS: BP 120/80; PULSE 65; RESP 16
== END 2025-03-07 10:26 | disposition home or self-care (01) ==
PROVIDERS: PCP Family Medicine; Visit Provider Obstetrics & Gynecology
PROC: 0U5B8ZZ Destruction of Endometrium, Via Natural or Artificial Opening Endoscopic (ICD-10-PCS; CPT 58563; principal; 2025-03-07 08:30)
DX: N91.2 Amenorrhea, unspecified (principal); Z30.430 Encounter for insertion of intrauterine contraceptive device; E66.9 Obesity, unspecified; Z68.39 Body mass index [BMI] 39.0-39.9, adult
CPT/HCPCS: 58558; 58300; 88305; A9270; J2003; J2250; J2405; J2704; J3010; J7120

== ENCOUNTER 2025-09-03 01:01 | Day surgery (SDC) | payer OTHER, SELFPAY ==
[2025-08-09 14:37] VITALS: BMI 35.8
--- OUTSIDE RECORDS SUMMARY | 2025-09-03 01:03 | XMS_ITS | Clinical Summary ---
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 Phone Lorraine Brand DO Primary Care Provider + Allergies Active Allergy Reactions Criticality Noted Date Comments Kvpfkjzug-Paaitnmvt-Lxxfyklk Swelling Medium 010 Medications progesterone (PROMETRIUM) 200 [...] on file Legal Sex Female 4:32 PM [employer] Gender Identity Not on file Sexual Orientation [...] Screening 1998 Regular Well Visit/Exam 18-64 1998 HPV Vaccines (1 - 3-dose SCD M series) 2007 DTaP/Tdap/Td Vaccine (2 - Td or Tdap) 03/12/2020 03/12/2010 Breast Cancer Screening-Mammogram 05/25/2025 05/25/2024, 04/27/2024 Covid-19 Vaccine (4 - 2024-2 6 season) 2025 07/16/2021, 12/17/2020, 11/26/2020 Influenza Vaccine (#1) 2025 07/16/2021 Pneumococcal vaccine <65 Aged Out No longer [...] Most Recently Relevant to Health Maintenance Insurance [employer] [facility] [employer] Member Subscriber Plan / Payer ( fective 2021-Present) Name:Juli Sanchez Relation to Subscriber:Spouse Name:Herbie Starks Date of :1974 (Home) (Work) Address: [address] [place] [address] Payer ID:[id number] (NAIC) Type:[facility] HMO/PPO Address: [place] [phone] , [place] [address] [facility] [employer] 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 [place] [address] PCP - General Family Medicine 01/31/24
--- OUTSIDE RECORDS SUMMARY | 2025-09-03 01:03 | XMS_ITS | Data Portability ---
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 Plan of Treatment Reminders Order Date Submit Date Provider Last Modified By Organization Details Last Modified Time Details Appointments None recorded. Lab test, urine 2024 025 [facility], [address], [address], [place], [address], 13:44:38 Referral None recorded. Procedures None recorded. Surgeries dilation and curettage with hysteroscop y (SURG) 2024 025 [facility], [address], [place], [address], 12:08:49 Imaging None recorded. Medication Orders Mirena 21 mcg/24 hr (up to 8 years) 52 mg intrauterin e device 2024 025 [email or web address] Not available 09:48:22 Patient TargetsNo targets recorded. Patient InstructionsNo instructions recorded. Reason for Referral None Reported. Results Created Date Observation Date Name Description Value Unit Range Abnormal Flag Note LastModifiedBy Organization Detail LastModifiedTime 12/21/19 25 12/20/2024 IMAGE GUIDE D PAP AND HPV REGAR DLESS image guided Pap, HPV regardless of Pap result SEE RESULT S BELOW CASE REPOR T: Cytol ogy Gynec ologi david Repor t Case: [id number] Autho nya francisco Provi yobany: Caro Gil, AVA Mancilla cted: 12/20 1347 Order ing Locat ion: [place] Patho cullen Riley nat: 12/21 0158 First Scree n: Sylvia amaya, Moham ed, CT Rescr een: Edwina Bates, CT Speci men: Scree viraj Pap - [...] OSIS: Negat danica for Intra epith elial Lesgerson walsh or Jose G carrasquillo (NIL) . Elect ann piper by Edwina Bates, CT on 025 at [...] Thinp rep Imagi ng Syste m. CLINI DAVID INFOR MATIO N: Menst rual Statu s: LMP (if appli cable ): Clini david Histo ry/Pr eviou s Pap: Type of Neopl geetha (if appli cable ): Signi fican t Clini david Findi ngs: Other Histo ry: Hormo radha [...] ng do not corre late with physi david and/o r histo rical findi ngs, furth er inves tigat ion is recom srinivasan d, as clini phuong warra nted. Not Available [facility] (Lab) [address], [place], [address], 12/26/2024 10:16:04 01/10/20 25 01/09/2025 pregn silvano test, urine HCG negati ve Not Available [facility] [address], [place], [address], 01/09/2025 13:44:32 12/28/19 25 12/27/2024 US, donte s No observ ation record ed. [email or web address] [facility] [address], [place], [address], 12/27/2024 18:31:23 12/28/19 25 12/27/2024 US, trans vagin al No observ ation record ed. [email or web address] [facility] [address], [place], [address], 12/27/2024 18:31:32 12/28/19 25 12/27/2024 US, pelangelita s No observ ation record ed. Faye [address], [place], [address], 12/29/2024 16:39:42 Result Notes None recorded. Problems Name Problem SNOMED Code Status Onset Date Resolution Date Notes Provider Name and Address Organization Details Recorded Time Amenorrh ea 78930372 Completed 201405/07/2021 Absence of menstruat ion;Recor ded Elsewhere : No Locati on: [facility] So urce: EHR Chron ic: N Practic e ID: 0001 Bill able Time: 09:30:00 AM Tara Manzanares [facility] 1 10:07:20 Speciali zed medical examinat ion Completed 201405/07/2021 Gynecolog ical Examinati on;Record ed Elsewhere : No Locati on: [facility] So urce: EHR Chron ic: N Practic e ID: 0001 Bill able Time: 09:30:00 AM Tara Manzanares [facility] 1 10:08:07 Pregnanc y test positive 586134757 Completed 201405/07/2021 examinati on or test, positive result;Re corded Elsewhere : No Locati on: [facility] So urce: EHR Chron ic: N Practic e ID: 0001 Bill able Time: 09:30:00 AM Tara Manzanares [facility] 1 10:07:51 Speciali zed medical examinat ion Completed 201405/07/2021 Other specified chlamydia l diseases; Practice ID: 0001 Tara Manzanares [facility] 1 10:08:09 Venereal disease screenin g Completed 201405/07/2021 Screening examinati on for venereal disease;Bj maetice ID: 0001 Tara Manzanares [facility] 10:08:20 Screenin g for malignan t neoplasm of cervix Completed 201405/07/2021 Pap Smear;Pra ctice ID: 0001 Tara Manzanares [facility] 10:07:55 Obesity 420381127 Completed 201405/07/2021 Obesity;R ecorded Elsewhere : No Locati on: [facility] So urce: EHR Chron ic: N Practic e ID: 0001 Merlin able Time: 09:30:00 AM Tara Manzanares [facility] 10:07:45 Uterine size for dates discrepa ncy 365951859 Completed 201405/07/2021 UTERINE SIZE DERRICK-ANTEP AR;Practi ce ID: 0001 Tara Manzanares [facility] 10:08:17 Ultrason ography Completed 201405/07/2021 screening for malformat ion using ultrasoni cs;Practi ce ID: 0001 Tara Manzanares [facility] 10:08:13 Antenata l screenin g Completed 201405/07/2021 screening for malformat ion using ultrasoni cs;Practi ce ID: 0001 Tara Manzanares [facility] 1 10:07:22 Congenit al malforma tion 685670700 Completed 201405/07/2021 screening for malformat ion using ultrasoni cs;Practi ce ID: 0001 Tara Manzanares [facility] 10:07:26 Spotting per vagina in pregnanc y 590174865 Completed 201405/07/2021 SPOTTING- ANTEPARTU M;Practic e ID: 0001 [facility] 10:08:12 Routine antenata l care Completed 201405/07/2021 Supervisi on of other normal ;Recorded Elsewhere : No Locati on: [facility] So urce: EHR Chron ic: N Practic e ID: 0001 Bill able Time: 10:30:00 AM Tara pham [facility] 10:07:53 anatomy study Completed 201405/07/2021 [facility] SURVEY;Pr actice ID: 0001 Tara pham [facility] 10:07:33 Placenta previa without hemorrha ge - not delivere d [id number] Completed 201405/07/2021 Placenta previa without hemorrhag e, antepartu m;Practic e ID: 0001 Tara pham, [facility] 10:07:47 Excessiv e growth affectin g manageme nt of mother [id number] Completed 201405/07/2021 GROWTH LARGE LGA;Pract ice ID: 0001 [facility] 10:07:31 Uterine scar from previous surgery in pregnanc y, childbir th and the puerperi um - delivere d [id number] Completed 201405/07/2021 PREV C-DELIVER Y-DELIVRD ;Practice ID: 0001 Tara pham, [facility] 10:08:15 Single live from singleto n pregnanc y [id number] Completed 201405/07/2021 DELIVER-S NAALILIA LIVEBORN; Practice ID: 0001 Tara pham [facility] 10:07:57 Delivery by elective section [id number] Completed 201405/07/2021 Encounter for delivery without indicatio n;Practic e ID: 0001 [facility] 10:07:27 Single liveborn born in hospital by section [id number] Completed 201405/07/2021 Single liveborn , delivered by ; Practice ID: 0001 Tara pham [facility] 10:07:58 Lochia finding Completed 201405/07/2021 Encounter for routine postpartu m follow-up ;Practice ID: 0001 [facility] 10:07:43 Insertio n of intraute rine contrace ptive device Completed 201405/07/2021 Encounter for insertion of intrauter ine contracep tive device;Pr actice ID: 0001 Tara pham [facility] 10:07:40 Pregnanc y test negative [id number] Completed 201405/07/2021 Encounter for test, result negative; Practice ID: 0001 Tara pham [facility] 10:07:49 Clinical finding Completed 201405/07/2021 Presence of (intraute rine) contracep tive device;Pr actice ID: 0001 Tara pham [facility] 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 10:08:[address] Concept Completed 201505/07/2021 Encntr for general adult medical exam w/o abnormal findings; Recorded Elsewhere : No Locati on: [facility] So urce: EHR Chron ic: N Practic e ID: 0001 Bill able Time: 09:30:00 AM Tara Manz[facility] [address] 10:08:[address] Concept Completed 201505/07/2021 Anxiety;R ecorded Elsewhere : No Locati on: [facility] So urce: EHR Chron ic: N Practic e ID: 0001 Merlin able Time: 09:30:00 AM Tara Manzanares [facility] 1 10:08:00 Emotiona l state finding Completed 201505/07/2021 Other specified anxiety disorders ;Practice ID: 0001 Tara Manzanares [facility] 10:07:29 Problem Notes None recorded. Procedures Surgical History Date Name Laterality Status Provider Name and Address Organization Details Recorded Time 04/18/20 25 IUD Insertion completed Malinda Richardson [facility] 04/18/2025 15:26:53 03/07/20 25 DILATION AND CURETTAGE WITH HYSTEROSCOPY (SURG) completed Malinda Richardson [facility] 03/14/2025 16:40:21 01/10/20 25 Endometrial Biopsy completed KALI Oquendo [address], [place], [address], [facility] 01/09/2025 13:00:52 12/21/19 25 Date of Last Pap Smear completed Malinda Richardson [facility] 01/22/2025 10:21:57 04/27/20 24 Date of Last Mammogram completed Hillary Grewal [facility] 12/20/2024 09:15:38 01/12/20 24 Endometrial Biopsy completed KALI Oquendo [address], [place], [address], [facility] 01/12/2024 13:47:59 06/09/20 21 IUD Removal completed Delio Warner MD [address], [place], [address], [place] [facility] 06/09/2021 13:49:12 06/21/20 15 section completed [facility] 12/20/2024 09:55:35 03/09/20 10 Caesarean Section completed [facility] 12/20/2024 09:59:14 Imaging Results None recorded. Procedure Notes None recorded. Medical Equipment None Reported. Allergies Allergen ID Allergen Name Allergen Category Reaction Reaction Severity Criticality Documentation Date Start Date Code Code System Note Provider Name and Address Organization Details Recorded Time 27771 Chlorphen iramine / Methscopo sabina / Phenyleph rine medicatio n Not available Not available Not available 05/07/2021 84274 56 RxNorm Tara Manzanares [facility] 10:58:07 Medications Name Sig Start Date Stop Date Status Note LastModified by Organization Details LastModified Time Mirena 21 mcg/24 hr (up to 8 years) 52 mg intrauter ine device Take 1 device by intraute rine route. 2024 active Not Available Not Available Not Avai lable phenazopy ridine 100 mg tablet TAKE 1 [...] Prescrib ed Elsewher e: No Locat ion: Suraj declan [facility] odify By: morales High ncounter DateTime : 12/05/19 16 01:18:48 PM Not Available Not Available Not Available Augmentin 500 mg-125 mg tablet take 1 tablet by oral route every 12 hours 02/12 completed Prescrib ed Elsewher e: No Locat ion: [facility] odify By: talib High ncounter DateTime : 12/27/19 15 02:55:35 PM Not Available Not Available Not Available Wellbutri n XL 300 mg 24 hr tablet, extended release take 1 tablet by oral route every day 01/11 completed Prescrib ed Elsewher e: No Locat ion: [facility] odify By: morales High ncounter DateTime : 01/14/20 16 09:30:00 AM [...] for 30 days 12/26 completed Prescrib ed Elsewher e: No Locat ion: [facility] odify By: anusha soliser DateTime : 11/28/19 15 09:30:00 AM Not Available Not Available Not Available Vitals Date Recorded Body height Body mass index (BMI) Body weight Systolic And Diastolic Provider Name and Address Organization Details Last Updated DateTime 01/09/2025 162.56 cm 40 kg/m2 176799.3 g 128/84 mm[Hg] Hillary Grewal [facility] 01/09/2025 12:26:04 Date Recorded Body height Body mass index (BMI) Body weight Systolic And Diastolic Provider Name and Address Organization Details Last Updated DateTime 01/22/2025 162.56 cm 40 kg/m2 454389.02 g 117/78 mm[Hg] [facility] 01/22/2025 10:20:51 Date Recorded Body height Body mass index (BMI) Body weight Systolic And Diastolic Provider Name and Address Organization Details Last Updated DateTime 03/14/2025 162.56 cm 40.3 kg/m2 484172.21 g 132/75 mm[Hg] [facility] 03/14/2025 16:39:30 Date Recorded Body height Body mass index (BMI) Body weight Systolic And Diastolic Provider Name and Address Organization Details Last Updated DateTime 04/18/2025 162.56 cm 39.8 kg/m2 772879.43 g 133/87 mm[Hg] [facility] 04/18/2025 15:28:13 Social History Question Answer Notes LastModified by Organizat ion Details LastModified Time Tobacco Smoking Status Never Smoker Elizabeth pham, [facility] 12/15/2023 10:03:50 Do You Have An [...] Or The Highest Degree You Have Received? [id number] Information not available 05/07/2021 Are There Any [...] not available 12/15/2023 Are you able to walk independently without assistance or assistive devices? YESWOREST Information not available 05/07/2021 What is your occupation? [employer] Information not available 12/15/2023 What is your exercise level? Occasional Information not available 05/07/2021 Mental Status Question Answer Note LastModified by Organization D etails LastModified Time Do you feel stressed (tense, restless, nervous, or anxious, or unable to sleep at night)? [id number] Information not available 12/15/2023 Family History Relationship Description Onset Age of this Age Resolved Age Notes LastModified by Organization Details LastModified Time Father Diabetes mellitus Not available 2020 10:11:42 Maternal Grandmother Diabetes mellitus Not available 2020 10:11:55 Mother Hypertensive disorder [email or web address] Not available 2023 09:55:41 Medical History Condition Response Allergies (Food, seasonal, environmental ) N Other Y Blood Transfusion N Drug/Latex Allergies/Reactions N Breast Cancer N Dermatologic Disorders N Lung Disease N [...] Statement/Question Response Date of Last Mammogram 04/27/2024 Flow Light Date of LMP 04/18/2025 N Was last menstrual period normal Y STIs/STDs N Date of Last Colonoscopy IUD Desired Control Method IUD Abnormal Pap N On BCP's at Conception? N HPV Vaccine Y Duration of Flow (days) 5 Current Control Method IUD Age at First Child 20 Are cycles [...] Diagnosis SNOMED-CT Code Diagnosis ICD10 Code Diagnosis IMO Codes Diagnosis Note [id number] KALI [facility] [address] [address] 05/07/2021 10:35:36 05/07/2021 13:48:08 Gynecologic examination 65037838 Z01.419 Suggested Calcium with Vitamin D 1200-1500m g daily. Patient advised to get an annual flu shot in the fall and [facility]. Also to obtain TDap vaccinatio [...] ordered Chronic pe lvic pain of female 067381422 R10.2 Having this heavy pelvic pressure upon awakening every morning for the last 6mos.Unsur e of where this is stemming from (i.e. manager spanish issues, osteoarthr itis, etc)This issue stops a [...] satisfacti on. Spasm of u rinary bladder 270228932 N32.89 [id number] Delio Warner MD [facility] [address] [address] 05/07/2021 15:56:25 05/08/2021 14:14:54 Pain in pelvis 35881619 R10.2 T83.39XA [id number] [facility] [address],[place] [address] 05/23/2021 12:27:33 05/23/2021 14:51:45 Pain in pelvis 12418551 R10.2 R10.9 Today after review of TVUS [...] this patient s visit, including available hand orthopaedic doctor upon arrive, temperatur e check and being asked a series of screening questions. All staff wore face coverings during this encounter, as well as provided additional cleaning and sanitizing of all surfaces, including countertop s, pens, chairs, door handles, light switches, etc, prior to and following the patient s visit. [id number] Delio Warner MD [facility] [address],[place] [address] 06/09/2021 12:11:37 06/09/2021 13:51:12 Malposition of intrauterine contraceptive device 1584361134 3956281 T83.32XS the IUD was removed without complicati ons. She tolerated the procedure well. [id number] KALI Oquendo [facility] [address],[place] [address] 12/15/2023 09:54:11 12/15/2023 11:21:33 Gynecologic examination 61204297 Z01.419 WWEpap updateddec lined STI screenmamm ogram order givenencou raged annual exam with PCP Suggested Calcium with Vitamin D daily. Patient advised to get an annual flu shot in the fall and she could obtain at [facility] or [facility] clinic. Also to obtain TDap vaccinatio n [...] call or respond to this email. Amenorrhea 37680505 N91. 2 labs and pelvic u/s orderedRTC for f/u to review Adult heal th examination 381420618 Z00.00 Screening for malignant neoplasm of breast 587736316 Z12.39 Weight gain 3091087 R63. 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 [id number] Delio Warner MD [facility] [address] [address] 12/29/2023 17:23:38 12/30/2023 03:25:41 Amenorrhea 52878557 N91.2 [id number] KALI Oquendo [facility] [address] [address] 01/05/2024 14:25:56 01/05/2024 15:20:01 Screening procedure 27995259 Z13.9 Hyperprolactinemia 43595 2004 E22.1 Discussed recent labsprolac tin elevated at 156 : referral to endocrine sent, pt has appointmen t scheduled for next monthrevie wed updated pelvic u/s : endo 18mm. Recommende d EMB. R/b/a of EMB discussed with patient. Continue to abstain from IC until EMB, bhcg day prior.disc ussed cyclic progestero ne pending normal EMBgc/ct/t rich testing sentRT for EMB Time spent in visit is a total of 25mins with at least 50% of visit consisting of counseling and review of plan of care. Irregular periods 197622 07 N92.6 Venereal d isease screening 167993173 Z11.3 [id number] Caro Gil AV[facility] [address] [address] 01/12/2024 12:23:38 01/12/2024 13:51:48 Screening procedure 93846458 Z13.9 Amenorrhea 47403126 N91. 2 EMB consent reviewed and signedEMB performed (see procedure note)preca utions reviewedwi ll update pt with results when availabled iscussed cyclic progestero ne pending normal EMB until endocrinol ogy consultque stimichael answered [id number] Caro Gil AV[facility] [address] [address] 12/20/2024 09:42:31 12/20/2024 10:35:57 Gynecologic examination 18445852 Z01.419 Z11.51 WWEPap - done todaySTI screen - declinedMa mmogram - order givenColon cancer screening - due at [address] [place] [address] - [facility] in 1 yr or sooner if needed [...] answered. Screening for malignant neoplasm of breast 353441886 Z12.39 Contracept ion care management 703039869 Z30.9 We discussed all optionsint in Mirena IUD, r/b/a reviewedwe agreed to recheck pelvic u/s d/t hx prior to insertion, if wnl will proceed with IUD insertion with next periodpelv ic u/s scheduled [id number] Delio Warner MD [facility] [address],[place] [address] 12/27/2024 12:25:46 12/27/2024 13:10:49 Endometrium thickened 562806751 R93.89 [id number] Caro GilKALI [facility] [address],[place] [address] 01/09/2025 12:11:16 01/09/2025 13:55:33 Endometrium thickened 873835505 R93.89 EMB attempted today and discontinu ed (see procedure note)Consu lt scheduled with Dr. Warner to discuss hysterosco py D&C with Mirena IUD placementq uestions answered, precaution s discussed Contracept ion care management 530360274 Z30.9 Venereal d isease screening 492823843 Z11.3 gc/ct/tric h urine testing sent [id number] Delio Warner MD [facility] [address],[place] [address] 01/22/2025 09:55:12 01/22/2025 11:09:30 Endometrium thickened 377017349 R93.89 [id number] this patient is a 44-year-ol d female [...] to proceed. Insertion of intrauterine contraceptive device 49698569 Z30.430 793474 [id number] Delio Warner MD [facility] [address],[place] [address] 03/07/2025 09:02:15 03/10/2025 03:52:38 [id number] Delio Warner MD [facility] [address],[place] [address] 03/14/2025 16:24:49 03/14/2025 17:15:43 Insertion of intrauterine contraceptive device 42219150 Z30.430 [id number] Abnormal u terine bleeding 1307873800 9100 N93.9 [id number] This patient is a 44-year-ol d female who presents for follow-up on abnormal uterine bleeding. Patient had thickened endometriu m. She underwent D&C. The pathology was benign. We inserted the IUD. She will follow up as needed. She has no complaints . [id number] Delio Warner MD [facility] [address] [address] 04/18/2025 14:51:47 04/18/2025 16:22:14 Intrauterine contraceptive device in situ 130346056 Z30.431 [id number] This patient is a 44-year-ol d who presents for IUD check. She has no complaints . She was examined with a speculum. The cervix appears normal, the IUD string appears normally placed, the IUD was not visible. She will follow up as needed. Health Concerns Section Related Observation LastModified by Organization Detai ls LastModified Time None Recorded Concern Status LastModified by Organization Details LastModified Time None Recorded Advance Directives Directive N: Payers Insurance Date Sequence Insurance Name Policy Number Policy Leos Covered Member ID Leos Member ID Guarantor Name 04/18/2025 1 [facility] [id number] Herbie Raudel [id number] Juli Sanchez Notes Date Note Type Note Provider Name and Address Organization Details Recorded Time 5 text/html 44yopresents for EMB and Mirena IUD insertioncurrently on her period KALI Oquendo [address], [place], [address], [facility] 01/09/2025 13:49:41 5 text/html this patient [...] hemorrhage and infection. Delio Warner MD [address], [place], [address], [facility] 01/22/2025 11:08:04 5 text/html This patient is a 44-year-old female who presents for follow-up on abnormal uterine bleeding. Patient had thickened endometrium. She underwent D&C. The pathology was benign. We inserted the IUD. She will follow up as needed. She has no complaints. Delio Warner MD [address], [place], [address], [facility] 03/14/2025 17:15:16 5 text/html This patient is a 44-year-old who presents for IUD check. She has no complaints. She was examined with a speculum. The cervix appears normal, the IUD string appears normally placed, the IUD was not visible. She will follow up as needed. Delio Warner MD [address], [place], [address], [facility] 04/18/2025 16:20:29 OBGyn Episode Ob Episode Information Episode Created Date Number of Fetuses Patient Bloodtype Patient rh Status Prepregnancy Weight lbs Domestic Partner Domestic Partner Phone Father Name Name Plate Stamper Status 05/07/20 21 1 CLOSED Fetus Data First Name Last Name Admitted to NICU Weight (g) Sex Living Outcome Pediatric Complications Fetus ID Race Codes Race Delivery Type 3628.73 6 F Full Term [id number] Primary Nicolás Calculation Initial Nicolás Date Initial [...] Domestic Partner Domestic Partner Phone Father Name Name Plate Stamper Status 05/07/20 21 1 CLOSED Fetus Data First Name Last Name Admitted to NICU Weight (g) Sex Living Outcome Pediatric Complications Fetus ID Race Codes Race Delivery Type 3458.63 [id number] F Full Term [id number] Repeat Nicolás Calculation Initial Nicolás Date Initial [...] Domestic Partner Domestic Partner Phone Father Name Name Plate Stamper Status 05/07/20 21 1 CLOSED Fetus Data First Name Last Name Admitted to NICU Weight (g) Sex Living Outcome Pediatric Complications Fetus ID Race Codes Race Delivery Type 3628.73 [id number] Full Term [id number] Vaginal Delivery Nicolás Calculation Initial Nicolás Date [...]
--- OUTSIDE RECORDS SUMMARY | 2025-09-03 01:03 | XMS_ITS | Clinical Summary ---
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 Gender Identity Not on file Sexual Orientation Not on file Plan of Treatment Health Maintenance Due Date Last Done Comments DTAP/TDAP/TD VACCINES (1 - Tdap) 1999 HEPATITIS B VACCINES (1 of 3 - 19+ 3-dose series) 03/2000 HPV/Cotest (21-29) 2001 CERVICAL CANCER SCREENING 2010 HPV/Cotest (30-65) 2010 PAP SMEAR 2010 BREAST CANCER SCREENING 2020 INFLUENZA VACCINE (#1) 2025 HPV VACCINES (No Doses Required) Completed Insurance [employer] BLUE ACCESS/TRUE BLUE PPO Care Teams Ditto Machine Operator Relationship Specialty [place] [id number] [place] [phone] PCP - General 08/29/09
[2025-09-03 10:06] VITALS: BP 149/89; PULSE 77; RESP 16; TEMP 36.2; O2SAT 99; BMI 38.2
[2025-09-03 10:13] LABS: BEDSIDEPREGUCG Negative (Negative)
--- NOTE | 2025-09-03 10:20 | WPDANESEPPF ---
Anes - Initial Pre Proc Eval Procedure: Operation Date: 09/03/25 11:30 Proposed Procedures p Screening Colonoscopy - Randal Britton MD Date/Time: 09/03/25 10:20 Surgeon: Randal Britton MD Pre Op Diagnosis: Screening Patient Data Age: 44 Gender: F Height: 1.65 m Weight: 104.1 kg Last Vital Signs Temp 36.2 C L 09/03/25 10:06 Pulse 77 09/03/25 10:06 Resp 16 09/03/25 10:06 BP 149/89 H 09/03/25 10:06 Pulse Ox 99 09/03/25 10:06 O2 Del Method Room Air 09/03/25 10:06 Allergies Allergy/AdvReac Type Severity Reaction Status Date / Time chlorpheniramine (From Allergy Throat Verified 09/03/25 10:05 Extendryl) swelling dexchlorpheniramine (From Allergy Throat Verified 09/03/25 10:05 Extendryl) swelling phenylephrine (From Allergy Throat Verified 09/03/25 10:05 Extendryl) swelling Home Medications ?Medication ?Instructions ?Recorded ?Confirmed ?Type cabergoline 0.5 mg tablet 0.25 mg PO 2XW 06/21/24 08/09/25 History Laboratory Tests 09/03/25 10:06 POC Urine HCG, Qual Negative (Negative) Patient hx anesthesia problems: none Family hx anesthesia problems: none Results Review: All pre-operative results and documents have been reviewed as part of the pre-operative evaluation. [facility] Past Medical History Medical History (Updated 09/03/25 @ 10:20 by Oscar Aguilar MD) Obesity Headache Surgical History Surgical History H/O section Family History Family History Father Diabetes mellitus Family history of polycystic kidney disease Family history of cancer Family history of stroke Mother Hypertension Grandparent Family history of polycystic kidney disease Family history of cancer Social History Social History Smoking status: Never smoker Second hand tobacco smoke exposure: No Alcohol intake: never Substance use: never Substance use type: does not use Lack of Transportation: No Lack of Food: Never True Current Housing: I Have Housing Concerned About Future Housing: No Difficulty Paying Gas/Electric Bills: No Difficulty Paying for Meds: No Currently Unemployed: No Education: High School Diploma/GED Difficulty w/ Childcare or Family Care: No Living arrangements: with family Spiritual care concerns: No Anes - Eval Final PreProcedure Day of Procedure 09/03/25 10:20 Patient weight: obese Heart: regular rate and rhythm Lungs: clear to auscultation Airway: Mallampati scale class II Neurological: alert and oriented Last oral intake: >/= 8 hours ASA classification: II Emergent: no Anesthetic plan: proceed Anesthesia type and monitoring: general GIVS and standard monitoring Results Review: All pre-operative results and documents have been reviewed as part of the pre-operative evaluation. Informed Consent: The patient's anesthetic plan and its attendant risks and benefits were discussed with the patient/family/POA. Questions were solicited and answers provided to the satisfaction of the patient/family/POA.
[2025-09-03] MEDS: LACTATED RINGERS 1,000 ML 150 ML IV CONT (10:22)
--- NOTE | 2025-09-03 10:54 | PM.IMHP2 ---
H&P: HPI History of Present Illness Date/Time: 09/03/25 10:54 Chief Complaint: Screening colonoscopy Narrative: This is the patient's first colonoscopy. There are no GI symptoms and there is no family history of colorectal cancer. Review of Systems Review of Systems: All systems reviewed & are unremarkable except as noted in HPI and below PMFSH Past Medical History Medical History (Updated 09/03/25 @ 10:54 by Randal Britton MD) Obesity Headache Surgical History Surgical History H/O section Family History Family History Father Diabetes mellitus Family history of polycystic kidney disease Family history of cancer Family history of stroke Mother Hypertension Grandparent Family history of polycystic kidney disease Family history of cancer Social History Social History Smoking status: Never smoker Second hand tobacco smoke exposure: No Alcohol intake: never Substance use: never Substance use type: does not use Lack of Transportation: No Lack of Food: Never True Current Housing: I Have Housing Concerned About Future Housing: No Difficulty Paying Gas/Electric Bills: No Difficulty Paying for Meds: No Currently Unemployed: No Education: High School Diploma/GED Difficulty w/ Childcare or Family Care: No Living arrangements: with family Spiritual care concerns: No Meds Home Medications and Allergies Home Medications ?Medication ?Instructions ?Recorded ?Confirmed ?Type cabergoline 0.5 mg tablet 0.25 mg PO 2XW 06/21/24 08/09/25 History Allergies Allergy/AdvReac Type Severity Reaction Status Date / Time chlorpheniramine (From Allergy Throat Verified 09/03/25 10:05 Extendryl) swelling dexchlorpheniramine (From Allergy Throat Verified 09/03/25 10:05 Extendryl) swelling phenylephrine (From Allergy Throat Verified 09/03/25 10:05 Extendryl) swelling Vital Signs Vital Signs - 24 hr 09/03/25 10:06 Temperature 97.1 F L Pulse Rate 77 Respiratory Rate 16 Blood Pressure 149/89 H Pulse Oximetry 99 Oxygen Delivery Room Air Exam Const: General: cooperative and healthy appearing Resp: Effort & Inspection: normal respiratory effort and able to speak in complete sentences Auscultation: clear to auscultation bilaterally Cardio: Rate: regular rate Rhythm: regular rhythm GI: Inspection: normal to inspection GI Palp: No No hepatosplenomegaly present Auscultation: normal bowel sounds Rectal Exam: deferred Skin: General skin exam: normal color Psych: Appearance: grossly normal Mental Status: mental status grossly normal Assessment and Plan Assessment and plan (1) Encounter for screening colonoscopy: Code(s): Z12.11 - Encounter for screening for malignant neoplasm of colon Status: Acute Assessment and Plan: The patient is deemed a good candidate for the procedure. Consent signed. Will proceed.
[2025-09-03 11:10] VITALS: BP 100/55; PULSE 83; RESP 23; O2SAT 97
[2025-09-03 11:20] VITALS: BP 108/73; PULSE 77; RESP 24; O2SAT 99
[2025-09-03 11:30] VITALS: BP 117/72; PULSE 72; RESP 22; O2SAT 98
== END 2025-09-03 11:39 | disposition home or self-care (01) ==
PROVIDERS: Anesthesiology; PCP Family Medicine; Referring Provider Family Medicine; Visit Provider Internal Medicine Gastroenterology
PROC: 0DJD8ZZ Inspection of Lower Intestinal Tract, Via Natural or Artificial Opening Endoscopic (ICD-10-PCS; CPT 45378; principal; 2025-09-03 11:30)
DX: Z12.11 Encounter for screening for malignant neoplasm of colon (principal); E66.9 Obesity, unspecified; Z68.38 Body mass index [BMI] 38.0-38.9, adult; Z98.890 Other specified postprocedural states; Z80.9 Family history of malignant neoplasm, unspecified
CPT/HCPCS: 45378; J2003; J2704; J7120